=== PATIENT | female | born 1955 | race Asian ===

== ENCOUNTER → 2017-11-12 09:27 | Outpatient (CLI) | payer OTHER, MEDICAID, SELFPAY ==
--- NOTE | 2017-11-12 | DI.MRI.S_ITS ---
PROCEDURE: MR ABDOMEN WO/W CON INDICATIONS: 62 year-old female with hepatitis B. TECHNIQUE: Coronal HASTE, axial 2D FLASH in- and [id number]; axial breath-hold T2 FSE. Dynamic axial VIBE during the administration of contrast; post-contrast coronal VIBE or 2D FLASH with fat saturation from the hepatic dome to the iliac crests. Optional diffusion weighted imaging and ADC may be performed. COMPARISON: [facility], CT, PE STUDY (CTA CHEST), 07/07/2016, 10:59. Outside Film, CT, CT ABDOMEN PELVIS WITH CONTRAST, 10/08/2017, 9:50. FINDINGS: Image quality: Excellent. Lung bases: Basal loculated right pleural effusion is again noted, with numerous internal septations, some of which demonstrate enhancement anteriorly. Anterolateral right chest wall pigtail drainage catheter is now present. Moderate cardiomegaly is unchanged. Solid organs: Liver is normal in size, with multiple small and punctate hepatic cysts again noted. Gallbladder demonstrates no gallstones or biliary sludge. Biliary system is non dilated. Pancreas is normal in morphology. Spleen is normal in size and enhancement. No adrenal nodules. Both kidneys demonstrate normal size and enhancement, without hydronephrosis. Nodes and vessels: No retroperitoneal or mesenteric adenopathy by size criteria. Aorta and inferior vena cava are normal in size. Bowel and peritoneum: Unenhanced bowel loops are normal in caliber. No free fluid. Bones and soft tissues: No ventral hernias. Bone marrow is normal in overall signal. IMPRESSION: 1. No suspicious hypervascular hepatic mass lesions to suggest hepatocellular carcinoma in the setting of hepatitis B. 2. Numerous punctate and small nonenhancing hepatic cysts again noted. 3. Basal loculated right pleural effusion may reflect empyema, and demonstrates numerous nonenhancing and anterior enhancing internal septations. As such, percutaneous drainage may not be effective for management. Dictated by: Ishaan Gregory M.D. on 11/12/2017 at 11:45 Approved by: Ishaan Gregory M.D. on 11/12/2017 at 11:59
== END ==
PROVIDERS: PCP Internal Medicine; Visit Provider Internal Medicine Gastroenterology
DX: B19.10 Unspecified viral hepatitis B without hepatic coma (principal); K76.89 Other specified diseases of liver; J90 Pleural effusion, not elsewhere classified
CPT/HCPCS: 74183

== ENCOUNTER 2018-02-26 12:26 | Inpatient (IN) | payer MEDICARE, MEDICAID, SELFPAY ==
[2018-02-26] VITALS (26 sets, daily range): BP systolic 69–119; BP diastolic 35–83; PULSE 101–160; RESP 14–26; TEMP 36.3–37.2; O2SAT 97–100; BMI 15.3
--- NOTE | 2018-02-26 12:56 | DI.RAD.S_ITS ---
PROCEDURE: XR CHEST 1V INDICATIONS: weakness TECHNIQUE: One view of the chest was acquired. COMPARISON: [facility], CR, XR CHEST 1 VIEW, 11/26/2017, 9:02. [facility], CR, CHEST 1 VIEW, 08/10/2016, 10:40. FINDINGS: Surgical changes and devices: None. Lungs and pleura: Complex-appearing consolidation and gas is present at the right lung base. There is a small moderate right pleural effusion. Mediastinum: Mediastinal contours appear normal. Heart size is normal. Bones and chest wall: No suspicious bony lesions. Overlying soft tissues appear unremarkable. IMPRESSION: 1. Findings suggestive of complex right lower lobe pneumonia. Cavitary lesions cannot be excluded. There is a moderate-sized effusion as well. Dictated by: Araceli Arvizu M.D. on 02/26/2018 at 14:33 Approved by: Araceli Arvizu M.D. on 02/26/2018 at 14:34
[2018-02-26] MEDS: SODIUM CHLORIDE 0.9% 1,000 ML 150 ML IV ×2 (13:02→19:53)
[2018-02-26] MEDS: METOPROLOL TARTRATE 5 MG/5 ML INJ IV (13:02)
[2018-02-26 13:03] LABS: Add Manual Diff / Slide Review NO; Basophils Percent Auto 0.9 % (0-2); Eosinophils Percent Auto 0.1 % (2-4); Hematocrit 28.1 % (36-46); Hemoglobin 8.8 g/dL (12.0-16.0); Mean Corpuscular HGB Conc 31.4 % (30-36); Mean Corpuscular Hemoglobin 24.6 PG (26-34); Mean Corpuscular Volume 78.3 fL (80-100); Monocytes Percent Auto 8.2 % (3-14); Neutrophils Absolute Auto 4200 /uL (3000-5900); Neutrophils Percent Auto 82.8 % (50-75); Platelet Count 394 X10^3/uL (150-400); Red Blood Cell Count 3.59 X10^6/uL (4.0-5.2); Red Cell Distribution Width 20.5 % (11.6-14.8)
[2018-02-26 13:11] LABS: PTT Partial Thromboplastin Tim 47 SECONDS (26.4-36.2)
[2018-02-26 13:15] LABS: Alanine Aminotransferase 37 IU/L (9-52); Albumin 3.4 g/dL (3.5-5.0); Albumin Globulin Ratio 0.7 (1.0-2.8); Alkaline Phosphatase 112 U/L (38-126); Aspartate Aminotransferase 99 IU/L (14-36); BUN Creatinine Ratio 15.7 (6-22); Bilirubin Total 1.6 mg/dL (0.2-1.3); Blood Urea Nitrogen 11 mg/dL (7-17); Calcium 8.5 mg/dL (8.4-10.2); Carbon Dioxide 24 mmol/L (22-32); Chloride 102 mmol/L (98-107); Creatine Kinase 60 U/L (30-135); Estimated Glomerular Filt Rate > 60.0 mL/min (>60); Globulin 5.2 g/dL (1.7-4.1); Glucose 182 mg/dL (80-110); HEMOLYSIS 41 (0-50); Lipase 68 U/L (23-300); Potassium 4.2 mmol/L (3.4-5.1); Sodium 138 mmol/L (137-145); Total Protein 8.6 g/dL (6.3-8.2)
[2018-02-26 13:20] LABS: Prothrombin Time 58.5 SECONDS (10.1-12.7)
[2018-02-26 13:22] LABS: INR 5.2 (0.9-1.3)
[2018-02-26 13:27] LABS: Troponin I < 0.012 ng/mL (0.01-0.034)
[2018-02-26 13:31] LABS: Anisocytosis 2+; Poikilocytosis 1+; Polychromasia 1+
--- NOTE | 2018-02-26 13:44 | ED.SOB ---
HPI - SOB/Dyspnea General Chief Complaint: Shortness of Breath/Dyspnea Stated Complaint: SHORT OF BREATH WHEN SITTING Time Seen by Provider: 02/26/18 12:51 Source: patient and family Mode of arrival: ambulatory Limitations: no limitations History of Present Illness 62-year-old female presents with a chief complaint of profound shortness of breath for the past few days. She has a history of atrial fibrillation and takes Coumadin. She does not report any palpitations or chest pain but is quite short of breath with any exertion or lying flat. She has known anemia which has been worked up for about a year without any obvious source. Patient denies missing any of her medications. Her primary care provider is Hillary Fowler. She was last admitted here in 2017 and had a baseline hemoglobin of about 12 and was admitted for persistent, rapid atrial fibrillation with RVR. She developed CHF during her admission. Related Data Home Medications Medication Instructions Recorded Confirmed simvastatin 10 mg PO HS #0 07/06/16 02/26/18 tenofovir disoproxil fumarate 300 mg PO QDAY #0 07/06/16 02/26/18 [Viread] Calcium 500 + D 1 tab PO DAILY 02/26/18 02/26/18 ethambutol 800 mg PO DAILY 02/26/18 02/26/18 isoniazid 300 mg PO DAILY 02/26/18 02/26/18 metoprolol succinate 1 tab PO DAILY 02/26/18 02/26/18 pyrazinamide 2 tab PO DAILY 02/26/18 02/26/18 pyridoxine (vitamin B6) [Vitamin 1 tab PO DAILY 02/26/18 02/26/18 B-6] sildenafil (antihypertensive) 10 mg PO BID 02/26/18 02/26/18 warfarin 1 - 2 tab PO QPM 02/26/18 02/26/18 Allergies Allergy/AdvReac Type Severity Reaction Status Date / Time No Known Drug Allergies Allergy Verified 02/26/18 12:43 Review of Systems Review of Systems All systems reviewed & are unremarkable except as noted in HPI and below Constitutional Denies chills, Denies fever(s), Denies lethargy and Reports weakness Eyes Denies change in vision, Denies eye discharge, Denies irritation and Denies loss of vision ENT Ears, Nose, Mouth, and Throat: Denies change in voice, Denies neck pain and Denies sore throat Cardiovascular Denies chest pain, Denies irregular heart rhythm, Denies lightheadedness, Denies palpitations, Denies dyspnea, Denies dyspnea on exertion and Denies orthopnea Respiratory Denies cough, Denies dyspnea, Denies dyspnea on exertion and Denies wheezing Gastrointestinal Gastrointestinal: Denies abdominal pain, Denies change in bowel habits, Denies diarrhea, Denies nausea and Denies vomiting Genitourinary Denies hematuria, Denies flank pain, Denies urinary incontinence and Denies urinary urgency Musculoskeletal Denies neck pain Integumentary/Breasts Denies pruritus, Denies erythema, Denies rash and Denies wounds Neurologic Denies confusion, Denies loss of vision and Reports weakness Psychiatric Denies anxiety, Denies confusion, Denies depression, Denies homicidal ideation and Denies suicidal ideation Endocrine Denies palpitations Hematologic/Lymphatic Denies easy bruising Allergic/Immunologic Denies wheezing PFSH Medical History Anemia (Acute) Atrial fibrillation (Acute) CHF (congestive heart failure) (Acute) Chronic hepatitis B (Acute) Social History Smoking Status: Never smoker Exam Narrative Exam Narrative: 62F appears unwell and in mild distress Initial Vital Signs Initial Vital Signs: Vital Signs Temperature 97.6 F 02/26/18 12:38 Pulse Rate 152 H 02/26/18 12:38 Respiratory Rate 14 02/26/18 12:38 Blood Pressure 83/59 L 02/26/18 12:38 Pulse Oximetry 98 02/26/18 12:38 Const General: cooperative, well developed and in distress Nutritional Appearance: well nourished Orientation: alert, awake, oriented x3 and not confused [facility] Head: normocephalic and atraumatic Ears: external ears normal and TM's normal bilaterally Nose: external nose normal and No nasal discharge Face and sinus: sinuses nontender, face symmetric, no sinus tenderness and No dry mucous membranes Mouth: oral mucosae normal and moist mucous membranes Teeth and gingiva: dentition normal Throat: tonsils normal and uvula midline Eyes General: appearance normal, both eyes and all related structures Eyelids: eyelids normal Conjunctivae: conjunctivae normal Sclera: sclerae normal Pupils: PERRL EOM: EOM intact bilaterally Neck Neck: normal visual inspection, trachea midline, No lymphadenopathy, No midline deformity and No JVD Lymphatic: No lymphedema Chest Chest: normal inspection of the chest Resp Effort & Inspection: normal respiratory effort, able to speak in complete sentences, no respiratory distress and no use of accessory muscles Auscultation: crackles on the right at the base, no rales, no rhonchi and no wheezes Cardio Rate: tachycardic Rhythm: abnormal rhythm Heart Sounds: no click, no gallops, no murmurs and no rubs Pulses: normal peripheral pulses GI Inspection: non-distended Palpation: soft, no hepatosplenomegaly, No guarding, No pulsatile mass and No tender Auscultation: normal bowel sounds Rectal Exam: visual inspection normal and heme negative stool Back/Spine/Pelvis Back: No CVA tenderness Cervical Spine: cervical ROM normal and No pain with cervical ROM Thoracic/Lumbar Spine: thoracic and lumbar spine normal to inspection Skin General: no rashes or lesions noted, No jaundice and No petechiae Course Orders Ordered: ED Orders 02/26/18 12:56 XR chest 1V Stat Complete Blood Count AUTO DIFF Stat Comprehensive Metabolic Panel Stat Lipase Stat Partial Thromboplastin Time Stat Prothrombin Time INR Stat Troponin & CK Cardiac Panel Stat EKG-12 Lead Stat 02/26/18 14:55 Type and Screen Stat 02/26/18 15:18 Blood Culture Stat 02/26/18 15:24 Lactate (Lactic Acid) Stat Procalcitonin Stat Sodium Chloride (Normal Saline 0.9%) 1,000 mls @ 150 mls/hr IV CONT TRUMAN Last Admin: 02/26/18 13:02 Dose: 150 mls/hr Diltiazem HCl 125 mg/ Dextrose 125 mls @ 5 mls/hr IV TITRATE TRUMAN; Protocol Last Admin: 02/26/18 14:59 Dose: 5 mg/hr, 5 mls/hr Discontinued Medications Diltiazem HCl (Cardizem) 10 mg IV NOW ONE Stop: 02/26/18 14:01 Last Admin: 02/26/18 14:01 Dose: 10 mg Ceftriaxone Sodium/Dextrose (Rocephin) 1 gm in 50 mls @ 100 mls/hr IV NOW ONE Stop: 02/26/18 15:31 Last Admin: 02/26/18 15:27 Dose: 100 mls/hr Metoprolol Tartrate (Lopressor) 5 mg IV NOW ONE Stop: 02/26/18 12:57 Last Admin: 02/26/18 13:02 Dose: 5 mg Consultations Consultation #1: Dr. Clayton happy to accept Vital Signs - 8 hr 02/26/18 12:38 02/26/18 13:00 02/26/18 13:20 Temperature 97.6 F Pulse Rate 152 H 158 H 150 H Respiratory Rate 14 20 18 Blood Pressure 83/59 L Blood Pressure [Right Arm] 119/83 76/62 L Pulse Oximetry 98 99 02/26/18 13:30 02/26/18 13:40 02/26/18 14:01 Temperature Pulse Rate 142 H 142 H 145 H Respiratory Rate 18 18 Blood Pressure 71/60 L Blood Pressure [Right Arm] 71/60 L 70/60 L Pulse Oximetry 98 98 02/26/18 14:03 02/26/18 14:07 02/26/18 14:09 Temperature Pulse Rate 160 H 112 H 121 H Respiratory Rate 20 22 Blood Pressure Blood Pressure [Right Arm] 72/61 L 69/55 L 70/59 L Pulse Oximetry 97 99 02/26/18 14:23 02/26/18 14:41 02/26/18 14:58 Temperature Pulse Rate 121 H 138 H 137 H Respiratory Rate 22 18 Blood Pressure Blood Pressure [Right Arm] 73/59 L 89/69 L 83/60 L Pulse Oximetry 97 02/26/18 14:59 02/26/18 15:01 02/26/18 15:08 Temperature Pulse Rate 128 H 131 H 130 H Respiratory Rate 26 H 14 Blood Pressure 83/60 L Blood Pressure [Right Arm] 80/66 L 77/62 L Pulse Oximetry 97 99 02/26/18 15:28 02/26/18 15:32 02/26/18 15:48 Temperature Pulse Rate 118 H 129 H 123 H Respiratory Rate 16 22 Blood Pressure Blood Pressure [Right Arm] 82/69 L 70/56 L 78/63 L Pulse Oximetry 98 99 MDM - SOB/Dyspnea Medical Records Attestation: I reviewed the patient's medical records. Lab Data Attestation: I reviewed the patient's lab results. Result diagrams: 02/26/18 12:56 02/26/18 12:56 Lab Results 02/26/18 02/26/18 02/26/18 Range/Units 12:56 12:56 12:56 WBC 5.0 (4.5-11.0) X10^3/uL RBC 3.59 L (4.0-5.2) X10^6/uL Hgb 8.8 L (12.0-16.0) g/dL Hct 28.1 L (36-46) % MCV 78.3 L (80-100) fL MCH 24.6 L (26-34) PG MCHC 31.4 (30-36) % RDW 20.5 H (11.6-14.8) % Plt Count 394 (150-400) X10^3/uL Neut % (Auto) 82.8 H (50-75) % Lymph % (Auto) 8.0 L (25-40) % [place] % (Auto) 8.2 (3-14) % Eos % (Auto) 0.1 L (2-4) % Baso % (Auto) 0.9 (0-2) % Neut # (Auto) 4200 (2847-1974) /uL RBC Morphology See below Polychromasia 1+ H Poikilocytosis 1+ H Anisocytosis 2+ H PT 58.5 H (10.1-12.7) SECONDS INR 5.2 H* (0.9-1.3) APTT 47 H (26.4-36.2) SECONDS Sodium 138 (137-145) mmol/L Potassium 4.2 (3.4-5.1) mmol/L Chloride 102 (98-107) mmol/L Carbon Dioxide 24 (22-32) mmol/L BUN 11 (7-17) mg/dL Creatinine 0.70 (0.52-1.04) mg/dL Estimated GFR > 60.0 (>60) mL/min BUN/Creatinine Ratio 15.7 (6-22) Glucose 182 H (80-110) mg/dL Lactate (0.7-2.1) mmol/L Calcium 8.5 (8.4-10.2) mg/dL Total Bilirubin 1.6 H (0.2-1.3) mg/dL AST 99 H (14-36) IU/L ALT 37 (9-52) IU/L Alkaline Phosphatase 112 (38-126) U/L Total Creatine Kinase 60 (30-135) U/L CK-MB (CK-2) TNP CK-MB (CK-2) Rel Index TNP Troponin I < 0.012 (0.01-0.034) ng/mL Total Protein 8.6 H (6.3-8.2) g/dL Albumin 3.4 L (3.5-5.0) g/dL Globulin 5.2 H (1.7-4.1) g/dL Albumin/Globulin Ratio 0.7 L (1.0-2.8) Lipase 68 (23-300) U/L Procalcitonin (<0.5) ng/mL Blood Type Antibody Screen 02/26/18 02/26/18 02/26/18 Range/Units 14:55 15:24 15:24 WBC (4.5-11.0) X10^3/uL RBC (4.0-5.2) X10^6/uL Hgb (12.0-16.0) g/dL Hct (36-46) % MCV (80-100) fL MCH (26-34) PG MCHC (30-36) % RDW (11.6-14.8) % Plt Count (150-400) X10^3/uL Neut % (Auto) (50-75) % Lymph % (Auto) (25-40) % [place] % (Auto) (3-14) % Eos % (Auto) (2-4) % Baso % (Auto) (0-2) % Neut # (Auto) (5892-4641) /uL RBC Morphology Polychromasia Poikilocytosis Anisocytosis PT (10.1-12.7) SECONDS INR (0.9-1.3) APTT (26.4-36.2) SECONDS Sodium (137-145) mmol/L Potassium (3.4-5.1) mmol/L Chloride (98-107) mmol/L Carbon Dioxide (22-32) mmol/L BUN (7-17) mg/dL Creatinine (0.52-1.04) mg/dL Estimated GFR (>60) mL/min BUN/Creatinine Ratio (6-22) Glucose (80-110) mg/dL Lactate 1.5 (0.7-2.1) mmol/L Calcium (8.4-10.2) mg/dL Total Bilirubin (0.2-1.3) mg/dL AST (14-36) IU/L ALT (9-52) IU/L Alkaline Phosphatase (38-126) U/L Total Creatine Kinase (30-135) U/L CK-MB (CK-2) CK-MB (CK-2) Rel Index Troponin I (0.01-0.034) ng/mL Total Protein (6.3-8.2) g/dL Albumin (3.5-5.0) g/dL Globulin (1.7-4.1) g/dL Albumin/Globulin Ratio (1.0-2.8) Lipase (23-300) U/L Procalcitonin 0.32 (<0.5) ng/mL Blood Type O Positive Antibody Screen Negative MDM Narrative Medical decision making narrative: patient not a great candidate for conscious sedation and cardioversion given her chronic illness and hypotension. She had a nice response to Cardizem push and will therefor begin drip and place in ICU. Discharge Plan Departure Patient Disposition: Admitted As Inpatient Clinical Impression: Atrial fibrillation with rapid ventricular response, Anemia, Supratherapeutic INR Admit Date/Time: 02/26/18 15:50 Admit Provider: [place]
[2018-02-26] MEDS: dilTIAZem 5 MG/ML SDV 10 MG IV (14:01)
[2018-02-26] MEDS: dilTIAZem 125 MG in DEXTROSE 5 % IN WATER 100 ML IV (14:59)
[2018-02-26] MEDS: CEFTRIAXONE 1 GM/50 ML FROZ.PIGGY IV (15:27)
[2018-02-26 15:42] LABS: Lactate (Lactic Acid) 1.5 mmol/L (0.7-2.1)
[2018-02-26 16:09] LABS: Procalcitonin 0.32 ng/mL (<0.5)
--- NOTE | 2018-02-26 18:11 | PM.HP.1 ---
History of Present Illness Date Patient Seen: 02/26/18 Time Patient Seen: 18:11 Chief complaint: SHORT OF BREATH WHEN SITTING Narrative: Chief complaint Shortness of breath with palpitations. History of present illness Patient is a 62 years of age female with known history of AFib on chronic Coumadin therapy. History of cardioversion last year 2016. No recent fevers nor chills no recent cough ER physician notes on chest x-ray right lower lobe infiltrate consistent with pneumonia. The shortness of breath and the palpitations noted earlier today. No associated chest pain. Patient History Medical History Anemia (Acute) Atrial fibrillation (Acute) CHF (congestive heart failure) (Acute) Chronic hepatitis B (Acute) Comment: Past medical history atrial fibrillation on chronic Coumadin therapy No history of diabetes no history of cancer no history of documented hypertension Family & Social History Safety & Behavioral: Feels Safe in Current Yes Environment Been Physically Hurt or No Threatened By a Person Tobacco & Substance use: Smoking Status Never smoker alcohol intake frequency 0-2 drinks per day Substance Use Type does not use Comment: Social history Patient lives along Nonsmoker Nonalcoholic Surgical history No major surgery Family history No cancer Meds Home Medications Medication Instructions Recorded Confirmed Type simvastatin 10 mg PO HS #0 07/06/16 02/26/18 History tenofovir disoproxil fumarate 300 mg PO QDAY #0 07/06/16 02/26/18 History [Viread] Calcium 500 + D 1 tab PO DAILY 02/26/18 02/26/18 History ethambutol 800 mg PO DAILY 02/26/18 02/26/18 History isoniazid 300 mg PO DAILY 02/26/18 02/26/18 History metoprolol succinate 1 tab PO DAILY 02/26/18 02/26/18 History pyrazinamide 2 tab PO DAILY 02/26/18 02/26/18 History pyridoxine (vitamin B6) [Vitamin 1 tab PO DAILY 02/26/18 02/26/18 History B-6] sildenafil (antihypertensive) 10 mg PO BID 02/26/18 02/26/18 History warfarin 1 - 2 tab PO QPM 02/26/18 02/26/18 History Allergies Allergy/AdvReac Type Severity Reaction Status Date / Time No Known Drug Allergies Allergy Verified 02/26/18 12:43 Review of Systems Review of Systems Ten point system review was negative apart from the symptoms as described which is the shortness of breath and palpitations Exam Vital Signs (past 8 hours): - 02/26/18 12:38 02/26/18 13:00 02/26/18 13:20 Temperature 97.6 F Pulse Rate 152 H 158 H 150 H Respiratory Rate 14 20 18 Blood Pressure 83/59 L Blood Pressure [Right Arm] 119/83 76/62 L Pulse Oximetry 98 99 02/26/18 13:30 02/26/18 13:40 02/26/18 14:01 Temperature Pulse Rate 142 H 142 H 145 H Respiratory Rate 18 18 Blood Pressure 71/60 L Blood Pressure [Right Arm] 71/60 L 70/60 L Pulse Oximetry 98 98 02/26/18 14:03 02/26/18 14:07 02/26/18 14:09 Temperature Pulse Rate 160 H 112 H 121 H Respiratory Rate 20 22 Blood Pressure Blood Pressure [Right Arm] 72/61 L 69/55 L 70/59 L Pulse Oximetry 97 99 02/26/18 14:23 02/26/18 14:41 02/26/18 14:58 Temperature Pulse Rate 121 H 138 H 137 H Respiratory Rate 22 18 Blood Pressure Blood Pressure [Right Arm] 73/59 L 89/69 L 83/60 L Pulse Oximetry 97 02/26/18 14:59 02/26/18 15:01 02/26/18 15:08 Temperature Pulse Rate 128 H 131 H 130 H Respiratory Rate 26 H 14 Blood Pressure 83/60 L Blood Pressure [Right Arm] 80/66 L 77/62 L Pulse Oximetry 97 99 02/26/18 15:28 02/26/18 15:32 02/26/18 15:48 Temperature Pulse Rate 118 H 129 H 123 H Respiratory Rate 16 22 Blood Pressure Blood Pressure [Right Arm] 82/69 L 70/56 L 78/63 L Pulse Oximetry 98 99 02/26/18 16:31 02/26/18 17:16 02/26/18 17:40 Temperature 99.0 F 98.3 F Pulse Rate 108 H 104 H 112 H Respiratory Rate 18 18 18 Blood Pressure 99/67 Blood Pressure [Right Arm] 82/59 L 70/52 L Pulse Oximetry 98 98 100 Oxygen Delivery Method Room Air Narrative Exam Narrative: General appearance awake and alert no apparent distress at rest Psychiatric well oriented to time place and person mood is pleasant affect is appropriate Eyes pupils are equal round and reactive to light Skin no rashes or lesions the new turgor normal nonjaundiced Ears nose and throat hearing grossly intact no septum to midline no bleeding no oropharyngeal lesions noted Respiratory fairly clear to auscultation no wheezes no crackles Cardiovascular regular rate rhythm no murmurs +3 pulses to extremities GI is fairly benign soft nontender positive bowel sounds no bruits Neurologic no focal neurologic changes cranial nerves 2-12 grossly intact Musculoskeletal strength 5/5 no clubbing noted range of motion appears normal Objective Labs Result Diagrams: 02/26/18 12:56 02/26/18 12:56 Labs: Laboratory Results - last 24 hr 02/26/18 02/26/18 02/26/18 12:56 12:56 12:56 WBC 5.0 RBC 3.59 L Hgb 8.8 L Hct 28.1 L MCV 78.3 L MCH 24.6 L MCHC 31.4 RDW 20.5 H Plt Count 394 Neut % (Auto) 82.8 H Lymph % (Auto) 8.0 L [place] % (Auto) 8.2 Eos % (Auto) 0.1 L Baso % (Auto) 0.9 Neut # (Auto) 4200 RBC Morphology See below Polychromasia 1+ H Poikilocytosis 1+ H Anisocytosis 2+ H PT 58.5 H INR 5.2 H* APTT 47 H Sodium 138 Potassium 4.2 Chloride 102 Carbon Dioxide 24 BUN 11 Creatinine 0.70 Estimated GFR > 60.0 BUN/Creatinine Ratio 15.7 Glucose 182 H Lactate Calcium 8.5 Total Bilirubin 1.6 H AST 99 H ALT 37 Alkaline Phosphatase 112 Total Creatine Kinase 60 CK-MB (CK-2) TNP CK-MB (CK-2) Rel Index TNP Troponin I < 0.012 Total Protein 8.6 H Albumin 3.4 L Globulin 5.2 H Albumin/Globulin Ratio 0.7 L Lipase 68 Procalcitonin Blood Type Antibody Screen 02/26/18 02/26/18 02/26/18 14:55 15:24 15:24 WBC RBC Hgb Hct MCV MCH MCHC RDW Plt Count Neut % (Auto) Lymph % (Auto) [place] % (Auto) Eos % (Auto) Baso % (Auto) Neut # (Auto) RBC Morphology Polychromasia Poikilocytosis Anisocytosis PT INR APTT Sodium Potassium Chloride Carbon Dioxide BUN Creatinine Estimated GFR BUN/Creatinine Ratio Glucose Lactate 1.5 Calcium Total Bilirubin AST ALT Alkaline Phosphatase Total Creatine Kinase CK-MB (CK-2) CK-MB (CK-2) Rel Index Troponin I Total Protein Albumin Globulin Albumin/Globulin Ratio Lipase Procalcitonin 0.32 Blood Type O Positive Antibody Screen Negative Assessment & Plan Plan: Assessment/Plan Narrative: Rapid atrial fibrillation Patient started on diltiazem infusion and admitted to ICU Telemetry provided Supra therapeutic INR Hold the Coumadin Daily INR Right lower lobe pneumonia Is noted on chest x-ray Procalcitonin is 0.32 repeat procalcitonin in a.m. as ordered Xithromax 500 mg IV daily Rocephin 1 g daily IV Follow-up blood cultures if negative consider IV iron replacement if patient is found to have iron deficiency anemia Microcytic anemia Iron studies pending. Retic count pending Time Spent With Patient Time with patient: Greater than 35 minutes (65 min)
[2018-02-26 18:39] LABS: Reticulocyte Count, Percent 2.4 % (1.06-2.63)
[2018-02-26] MEDS: AZITHROMYCIN 500 MG in DEXTROSE 5% IN WATER 250 ML IV (18:40)
[2018-02-26 19:17] LABS: HEMOLYSIS < 15 (0-50); Iron 26 ug/dL (37-170)
[2018-02-26 19:28] LABS: Percent Iron Saturation 9 % (15-50); Total Iron Binding Capacity 276 ug/dL (265-497); Transferrin 207 mg/dL (206-381)
[2018-02-26] MEDS: SIMVASTATIN 10 MG TABLET PO (20:26)
--- NOTE | 2018-02-26 21:57 | PC.NURSE ---
Diltiazem drip stopped, HR 90s. BP hypotensive since arrival to ED, currently 79/35, MD aware. Pt A/Ox4. Able to stand and transfer to C with slight dizziness. Tolerating PO intake.
[2018-02-27] VITALS (19 sets, daily range): BP systolic 73–101; BP diastolic 32–65; PULSE 79–134; RESP 18–35; TEMP 36.1–37.3; O2SAT 96–100
--- NOTE | 2018-02-27 | DI.CT.S_ITS ---
PROCEDURE: CT CHEST ABDOMEN W CON INDICATIONS: suspicious complex infiltrate in RLL. TECHNIQUE: After the administration of oral contrast and intravenous contrast, 5 mm thick sections acquired from the lung apices to the iliac crests. 5 mm coronal and sagittal reformats were performed, with additional 7 mm coronal MIP reformats through the lungs. For radiation dose reduction, the following was used: automated exposure control, adjustment of mA and/or kV according to patient size. COMPARISON: [facility], CT, CT BIOPSY LUNG/MEDIASTINUM, 11/09/2017, 8:45. Merged With [facility], CR, XR CHEST 1V, 02/26/2018, 13:05. Outside Film, CT, CT ABDOMEN PELVIS WITH CONTRAST, 10/08/2017, 9:50. FINDINGS: Image quality: Excellent. CHEST: Lungs and pleura: Consolidation is noted in the right lung base. There is a large loculated right-sided pleural fluid collection. There is marked thickening and irregularity of the pleura in the right lung base which has progressed compared to prior CT scan obtained 10/08/[address] scan biopsy 11/09/2017. No pneumothorax. Central and peripheral airways are patent and normal in caliber. Mediastinum: Heart size is enlarged. No pericardial effusion. No mediastinal or hilar adenopathy by size criteria. Thoracic aorta and central pulmonary arteries are normal in size. Esophagus is normal in caliber. No hiatal hernia. Chest wall: No axillary or supraclavicular adenopathy by size criteria. Thyroid gland contains a subcentimeter small hypoattenuating nodules. The 1.1 cm enhancing nodule is noted posterior to the inferior margin of the left thyroid which may represent parathyroid adenoma.. ABDOMEN: Solid organs: Liver is normal in size and enhancement. Multiple hepatic cysts not significantly changed compared to 10/08/17. Gallbladder is partially contracted. Small amount of pericholecystic fluid is noted.. Biliary system is non dilated. Pancreas enhances normally. Spleen is normal in size and enhancement. No adrenal nodules. Kidneys are normal in size and enhancement, without hydronephrosis. Peritoneum and bowel: Bowel loops demonstrate normal wall thickness and caliber. No free fluid or air. Nodes and vessels: No retroperitoneal or mesenteric adenopathy by size criteria. Aorta and inferior vena cava are normal in caliber. Bones: No suspicious bony lesions. No vertebral body compression fractures. Miscellaneous: No ventral hernias. IMPRESSION: 1. Large, loculated right pleural fluid collection which is increased in size compared to prior examinations. There is marked pleural irregularity and thickening associated with the right-sided pleural fluid collection which could represent neoplastic or chronic empyema. Recommend correlation with prior biopsy results. 2. Right lower lobe consolidation concerning for aspiration versus pneumonia. 3. Small amount of pericholecystic fluid. There is clinical concern for allergies, abdominal ultrasound should be obtained for definitive characterization. 4. Cardiomegaly. Dictated by: Anne-Marie Miller MD, PhD on 02/27/2018 at 9:08 Approved by: Anne-Marie Miller MD, PhD on 02/27/2018 at 9:25
[2018-02-27] MEDS: SODIUM CHLORIDE 0.9% 1,000 ML 150 ML IV ×3 (02:47→17:44)
[2018-02-27 05:04] LABS: Add Manual Diff / Slide Review NO; Basophils Percent Auto 1.3 % (0-2); Eosinophils Percent Auto 0.9 % (2-4); Hematocrit 23.8 % (36-46); Hemoglobin 7.5 g/dL (12.0-16.0); Lymphocytes Percent Auto 13.4 % (25-40); Mean Corpuscular HGB Conc 31.5 % (30-36); Mean Corpuscular Hemoglobin 24.5 PG (26-34); Mean Corpuscular Volume 77.8 fL (80-100); Monocytes Percent Auto 10.9 % (3-14); Neutrophils Absolute Auto 3000 /uL (3000-5900); Neutrophils Percent Auto 73.5 % (50-75); Platelet Count 322 X10^3/uL (150-400); Red Blood Cell Count 3.05 X10^6/uL (4.0-5.2); Red Cell Distribution Width 20.1 % (11.6-14.8)
[2018-02-27 05:11] LABS: Alanine Aminotransferase 32 IU/L (9-52); Albumin 2.7 g/dL (3.5-5.0); Albumin Globulin Ratio 0.7 (1.0-2.8); Alkaline Phosphatase 94 U/L (38-126); Aspartate Aminotransferase 65 IU/L (14-36); Bilirubin Total 0.9 mg/dL (0.2-1.3); Blood Urea Nitrogen 9 mg/dL (7-17); Calcium 7.8 mg/dL (8.4-10.2); Carbon Dioxide 24 mmol/L (22-32); Chloride 107 mmol/L (98-107); Estimated Glomerular Filt Rate > 60.0 mL/min (>60); Glucose 101 mg/dL (80-110); HEMOLYSIS < 15 (0-50); Potassium 3.7 mmol/L (3.4-5.1); Sodium 139 mmol/L (137-145); Total Protein 6.7 g/dL (6.3-8.2)
[2018-02-27 05:14] LABS: INR 5.2 (0.9-1.3)
[2018-02-27 05:35] LABS: C-Reactive Protein Quant 3.4 mg/dL (<1.0)
--- NOTE | 2018-02-27 06:28 | PC.NURSE ---
Patient has been awake most of the night, mild anxiety r/t hospitalization and tachycardia, denies chest pain, or dyspnea, slightly dizzy and short of breath while transferring to BSC, SpO2 >96% on RA, breath sounds very diminished RLL. Remains in A-fib RVR, sustaining 100-120 at midnight, diltiazem gtt restarted at 2.5mg/hr, still hypotensive 80s/40s MAP >60, see vital trends. Increased diltiazem gtt to 5mg/hr at 0500 after patient up to BSC for HR sustaining >120. Dr Clayton called to inquire about patient's status, informed him of the above, he ordered CT of abd/pelvis w/ contrast.
[2018-02-27] MEDS: SILDENAFIL 20 MG TABLET 10 MG PO (08:13)
[2018-02-27] MEDS: ETHAMBUTOL 400 MG TABLET 800 MG PO (08:13)
[2018-02-27] MEDS: PYRIDOXINE (VITAMIN B6) 50 MG TABLET PO (08:13)
[2018-02-27] MEDS: ISONIAZID 300 MG TABLET PO (08:13)
[2018-02-27] MEDS: METOPROLOL ER 25 MG TABLET PO (08:14)
--- NOTE | 2018-02-27 10:29 | CM.DANOTE ---
DCP: Case received, EMR reviewed and met with patient. Introduced self and role. DCP template completed with information currently available. Patient is a 62 year old female who admitted yesterday afternoon to the care of the hospitalist team. PCP: Dr. Dunham. Payer: confirmed: Medicare/Medicaid. Patient was admitted to hospital with symptoms of shortness of breath. Was noted to be in A-Fib, had recenent cardioversion, for she has history of this. Patient alert and oriented, is on Diltiazem drip in ICU at this time, and will be having a CT scan. Patient lives alone, but has support of friends, and a neice as well. P: DCP to continue to assess. Patient's goal is to go home, but will depend on progress in hospital with current condition. Virgie Marin RN/News Video Editor
[2018-02-27] MEDS: DOCUSATE 100 MG CAPSULE PO ×2 (12:46→20:47)
--- NOTE | 2018-02-27 13:58 | PC.NURSE ---
pt taking many medications for TB of which she has supplied most of these and taken according to md order- given po dose of metoprolol this am in attempt to bring down hr as she remains on dilt gtt-this and her sildenafil both given and she remains hypotensive but continues to deny any pain - occassionally tachypneic which is concerning to pt. bsc intermittently - no MD rounds as of yet this shift
[2018-02-27] MEDS: dilTIAZem 125 MG in DEXTROSE 5 % IN WATER 100 ML 10 ML IV (14:27)
[2018-02-27] MEDS: CEFTRIAXONE 1 GM/50 ML FROZ.PIGGY IV (14:36)
--- NOTE | 2018-02-27 15:37 | PM.PN.1 ---
Subjective Date Patient Seen: 02/27/18 Time Patient Seen: 10:43 Interval history: History of present illness Follow-up on patient with rapid AFib along with his right lower lobe complex finding on chest x-ray Note follow-up CT of the abdomen pelvis today notes suspicious lesion for malignancy Patient had a biopsy of this right lower lobe region in October of 2017 at [facility] We are requesting a copy of the path report from this biopsy Review of systems No chest pain no shortness of breath no nausea at this time Exam Vital Signs (past 8 hours): - 02/27/18 08:14 02/27/18 09:40 02/27/18 10:20 Temperature 97.3 F L Pulse Rate 128 H 134 H 89 Respiratory Rate 25 H 21 Blood Pressure 92/61 92/53 L 73/32 L Pulse Oximetry 98 96 02/27/18 13:14 Temperature 99.1 F Pulse Rate 79 Respiratory Rate 33 H Blood Pressure 84/46 L Pulse Oximetry 97 Oxygen Delivery Method Room Air Oxygen Flow Rate 0 Narrative Exam Narrative: General appearance patient is awake and alert no apparent distress Psychiatric well oriented to time place person mood is pleasant patient is cooperative affect appropriate Respiratory with fair breath sounds no wheezes no crackles Cardiovascular irregular regular rhythm consistent with the AFib rate controlled at 90 per minute while on diltiazem IV infusion at 10 mg an hour GI is benign soft nontender positive bowel sounds Neurologic no focal neurologic changes cranial nerves 2-12 grossly intact Objective Labs Result Diagrams: 02/27/18 04:45 02/27/18 04:45 Labs: Laboratory Results - last 24 hr 02/26/18 02/26/18 02/26/18 14:55 15:24 15:24 WBC RBC Hgb Hct MCV MCH MCHC RDW Plt Count Neut % (Auto) Lymph % (Auto) Sharp % (Auto) Eos % (Auto) Baso % (Auto) Neut # (Auto) Percent Retic PT INR Sodium Potassium Chloride Carbon Dioxide BUN Creatinine Estimated GFR BUN/Creatinine Ratio Glucose Lactate 1.5 Calcium Iron TIBC % Saturation Transferrin Ferritin Total Bilirubin AST ALT Alkaline Phosphatase C-Reactive Protein Total Protein Albumin Globulin Albumin/Globulin Ratio Procalcitonin 0.32 Blood Type O Positive Antibody Screen Negative 02/26/18 02/26/18 02/26/18 18:29 18:29 18:29 WBC RBC Hgb Hct MCV MCH MCHC RDW Plt Count Neut % (Auto) Lymph % (Auto) Sharp % (Auto) Eos % (Auto) Baso % (Auto) Neut # (Auto) Percent Retic 2.4 PT INR Sodium Potassium Chloride Carbon Dioxide BUN Creatinine Estimated GFR BUN/Creatinine Ratio Glucose Lactate Calcium Iron 26 L TIBC 276 % Saturation 9 L Transferrin 207 Ferritin 171.0 Total Bilirubin AST ALT Alkaline Phosphatase C-Reactive Protein Total Protein Albumin Globulin Albumin/Globulin Ratio Procalcitonin Blood Type Antibody Screen 02/27/18 02/27/18 02/27/18 04:45 04:45 04:45 WBC 4.0 L RBC 3.05 L Hgb 7.5 L Hct 23.8 L MCV 77.8 L MCH 24.5 L MCHC 31.5 RDW 20.1 H Plt Count 322 Neut % (Auto) 73.5 Lymph % (Auto) 13.4 L Sharp % (Auto) 10.9 Eos % (Auto) 0.9 L Baso % (Auto) 1.3 Neut # (Auto) 3000 Percent Retic PT INR Sodium 139 Potassium 3.7 Chloride 107 Carbon Dioxide 24 BUN 9 Creatinine 0.50 L Estimated GFR > 60.0 BUN/Creatinine Ratio 18.0 Glucose 101 Lactate Calcium 7.8 L Iron TIBC % Saturation Transferrin Ferritin Total Bilirubin 0.9 AST 65 H ALT 32 Alkaline Phosphatase 94 C-Reactive Protein 3.4 H Total Protein 6.7 Albumin 2.7 L Globulin 4.0 Albumin/Globulin Ratio 0.7 L Procalcitonin Blood Type Antibody Screen 02/27/18 04:45 WBC RBC Hgb Hct MCV MCH MCHC RDW Plt Count Neut % (Auto) Lymph % (Auto) Sharp % (Auto) Eos % (Auto) Baso % (Auto) Neut # (Auto) Percent Retic PT 59.0 H INR 5.2 H* Sodium Potassium Chloride Carbon Dioxide BUN Creatinine Estimated GFR BUN/Creatinine Ratio Glucose Lactate Calcium Iron TIBC % Saturation Transferrin Ferritin Total Bilirubin AST ALT Alkaline Phosphatase C-Reactive Protein Total Protein Albumin Globulin Albumin/Globulin Ratio Procalcitonin Blood Type Antibody Screen Assessment & Plan Plan: Assessment/Plan Narrative: Rapid atrial fibrillation Patient started on diltiazem infusion and admitted to ICU and continues on the IV diltiazem today at 10 mg an hour Telemetry provided Supra therapeutic INR of 5.2 Continue holding the Coumadin today's INR is 5.2, same as on admission Right lower lobe pneumonia Is noted on chest x-ray Procalcitonin is 0.32 on admission repeat procalcitonin in a.m. as ordered Zithromax 500 mg IV daily Rocephin 1 g daily IV Blood cultures pending Requesting Path report from a biopsy of the right lower lobe in October at [facility] Note patient on antituberculous medications prior to admission Microcytic anemia Studies suggest anemia of chronic inflammation instead of iron deficiency anemia Need to treat the underlying cause a tomlin for the inflammation which appears to be related to this mischief in the right lower lung field Time Spent With Patient Time with patient: Greater than 35 minutes (35 min) Quality VTE Deep Vein Thrombosis/Pulmonary Embolism Present on Admission: No
[2018-02-27] MEDS: AZITHROMYCIN 500 MG in DEXTROSE 5% IN WATER 250 ML IV (17:42)
[2018-02-28] VITALS (15 sets, daily range): BP systolic 86–100; BP diastolic 44–63; PULSE 71–126; RESP 17–35; TEMP 36.6–37.3; O2SAT 93–97
[2018-02-28] MEDS: SODIUM CHLORIDE 0.9% 1,000 ML 150 ML IV (01:18)
[2018-02-28 05:13] LABS: Add Manual Diff / Slide Review NO; Basophils Percent Auto 0.8 % (0-2); Eosinophils Percent Auto 0.6 % (2-4); Hematocrit 25.9 % (36-46); Hemoglobin 8.1 g/dL (12.0-16.0); Lymphocytes Percent Auto 17.6 % (25-40); Mean Corpuscular HGB Conc 31.2 % (30-36); Mean Corpuscular Hemoglobin 24.6 PG (26-34); Mean Corpuscular Volume 79.1 fL (80-100); Monocytes Percent Auto 13.3 % (3-14); Neutrophils Absolute Auto 2500 /uL (3000-5900); Neutrophils Percent Auto 67.7 % (50-75); Platelet Count 299 X10^3/uL (150-400); Red Blood Cell Count 3.28 X10^6/uL (4.0-5.2); Red Cell Distribution Width 20.2 % (11.6-14.8); White Blood Cell Count 3.7 X10^3/uL (4.5-11.0)
[2018-02-28 05:16] LABS: INR 3.9 (0.9-1.3); Prothrombin Time 43.2 SECONDS (10.1-12.7)
[2018-02-28 05:23] LABS: Alanine Aminotransferase 37 IU/L (9-52); Albumin 2.7 g/dL (3.5-5.0); Albumin Globulin Ratio 0.6 (1.0-2.8); Alkaline Phosphatase 149 U/L (38-126); Aspartate Aminotransferase 66 IU/L (14-36); Bilirubin Total 1.2 mg/dL (0.2-1.3); Blood Urea Nitrogen 5 mg/dL (7-17); Calcium 7.8 mg/dL (8.4-10.2); Carbon Dioxide 22 mmol/L (22-32); Chloride 108 mmol/L (98-107); Estimated Glomerular Filt Rate > 60.0 mL/min (>60); Globulin 4.4 g/dL (1.7-4.1); Glucose 121 mg/dL (80-110); HEMOLYSIS < 15 (0-50); Potassium 3.5 mmol/L (3.4-5.1); Sodium 138 mmol/L (137-145); Total Protein 7.1 g/dL (6.3-8.2)
[2018-02-28 05:30] LABS: C-Reactive Protein Quant 2.5 mg/dL (<1.0)
[2018-02-28 06:38] LABS: Anisocytosis 3+; Hypochromasia 2+; Polychromasia 1+
[2018-02-28] MEDS: dilTIAZem 125 MG in DEXTROSE 5 % IN WATER 100 ML 10 ML IV (08:27)
[2018-02-28] MEDS: SODIUM CHLORIDE 0.9% 1,000 ML 25 ML IV (08:28)
[2018-02-28] MEDS: ETHAMBUTOL 400 MG TABLET 800 MG PO (09:17)
[2018-02-28] MEDS: CALCIUM CARB/VIT D3 500/200 TABLET 1 EACH PO (09:17)
[2018-02-28] MEDS: ISONIAZID 300 MG TABLET PO (09:17)
[2018-02-28] MEDS: PYRIDOXINE (VITAMIN B6) 50 MG TABLET PO (09:17)
[2018-02-28] MEDS: METOPROLOL ER 25 MG TABLET PO ×2 (09:17→21:08)
[2018-02-28] MEDS: DOCUSATE 100 MG CAPSULE PO (09:18)
--- NOTE | 2018-02-28 14:34 | PC.NURSE ---
as per Dr. Clayton- pt does NOT need to be isolated due to hx of TB- updated pt much to her relief
[2018-02-28] MEDS: dilTIAZem 30 MG TABLET 60 MG PO (17:27)
--- NOTE | 2018-02-28 17:57 | PC.NURSE ---
Evening Shift Note: Assumed care of pt at 1630. Pt received orders for diltiazem PO. Given 60 mg PO diltiazem at the same time diltiazem gtts finished. Diltiazem gtts off at 17:25. Pt remains in a-fib CVR at 1800. HR 78. Will continue to monitor, notify MD with changes.
--- NOTE | 2018-02-28 18:27 | P.PN_ITS ---
Subjective Date Patient Seen: 02/28/18 Time Patient Seen: 14:24 Interval history: History of present illness Follow-up on patient with rapid AFib and continue treatment of pulmonary tuberculosis that was started at [facility] in October 2017 Note patient had a follow-up chest x-ray and imaging coordinated through the health department 3 weeks ago. Review of system No chest pain or shortness of breath no nausea Exam Vital Signs (past 8 hours): - 02/28/18 12:42 02/28/18 16:00 02/28/18 17:27 Temperature 98.9 F 99.0 F Pulse Rate 89 90 78 Respiratory Rate 31 H 35 H Blood Pressure 100/63 100/54 L 96/58 L Pulse Oximetry 97 93 Oxygen Delivery Method Room Air Oxygen Flow Rate 0 Narrative Exam Narrative: General appearance cachectic female in no apparent distress Psychiatric : Oriented to time place and person mood is pleasant affect is appropriate Skin no rashes or lesions noted dermatitis turgor normal Respiratory fair breath sounds bilaterally Cardiovascular irregular regular rhythm rate of about 80 per minute +3 pulses to extremities GI fairly benign soft nontender positive bowel sounds no distension no guarding no bruits Neurologic no focal neurologic changes cranial nerves 2-12 grossly intact no tremors Objective Labs Result Diagrams: 02/28/18 04:55 02/28/18 04:55 Labs: Laboratory Results - last 24 hr 02/28/18 02/28/18 02/28/18 04:55 04:55 04:55 WBC 3.7 L RBC 3.28 L Hgb 8.1 L Hct 25.9 L MCV 79.1 L MCH 24.6 L MCHC 31.2 RDW 20.2 H Plt Count 299 Neut % (Auto) 67.7 Lymph % (Auto) 17.6 L [place] % (Auto) 13.3 Eos % (Auto) 0.6 L Baso % (Auto) 0.8 Neut # (Auto) 2500 L RBC Morphology See below Polychromasia 1+ H Hypochromasia 2+ H Anisocytosis 3+ H PT INR Sodium 138 Potassium 3.5 Chloride 108 H Carbon Dioxide 22 BUN 5 L Creatinine 0.50 L Estimated GFR > 60.0 BUN/Creatinine Ratio 10.0 Glucose 121 H Calcium 7.8 L Total Bilirubin 1.2 AST 66 H ALT 37 Alkaline Phosphatase 149 H D C-Reactive Protein 2.5 H Total Protein 7.1 Albumin 2.7 L Globulin 4.4 H Albumin/Globulin Ratio 0.6 L 02/28/18 04:55 WBC RBC Hgb Hct MCV MCH MCHC RDW Plt Count Neut % (Auto) Lymph % (Auto) [place] % (Auto) Eos % (Auto) Baso % (Auto) Neut # (Auto) RBC Morphology Polychromasia Hypochromasia Anisocytosis PT 43.2 H D INR 3.9 H Sodium Potassium Chloride Carbon Dioxide BUN Creatinine Estimated GFR BUN/Creatinine Ratio Glucose Calcium Total Bilirubin AST ALT Alkaline Phosphatase C-Reactive Protein Total Protein Albumin Globulin Albumin/Globulin Ratio Assessment & Plan Plan: Assessment/Plan Narrative: Rapid atrial fibrillation Patient started on diltiazem infusion and admitted to ICU and continues on the IV diltiazem today at 10 mg an hour today Telemetry provided Will have the diltiazem IV infusion tapered off start patient on diltiazem 60 mg p.o. q.i.d. and increase the metoprolol Succinate to 25 mg p.o. b.i.d. consult for physical therapy and occupational therapy Supra therapeutic INR of 5.2 Continue holding the Coumadin today's INR is 3.9 and will continue to hold the Coumadin today and repeat INR in a.m. 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 The antibiotics patient was started on admission was discontinued Microcytic anemia Studies suggest anemia of chronic inflammation instead of iron deficiency anemia Need to treat the underlying cause a tomlin for the inflammation which is likely Related to the pulmonary tuberculosis she is presently being treated for Time Spent With Patient Time with patient: 25 - 35 minutes (30 min to visit with patient and coordinate care) Quality VTE Deep Vein Thrombosis/Pulmonary Embolism Present on Admission: No
[2018-02-28] MEDS: SILDENAFIL 20 MG TABLET 10 MG PO (21:07)
[2018-02-28] MEDS: MAGNESIUM HYDROXIDE 30 ML UDC PO (21:11)
[2018-02-28] MEDS: ROSUVASTATIN 10 MG TABLET 20 MG PO (21:12)
[2018-02-28] MEDS: SENNOSIDES 8.6 MG TABLET 17.2 MG PO (21:12)
[2018-03-01] VITALS (8 sets, daily range): BP systolic 87–103; BP diastolic 42–66; PULSE 75–114; RESP 16–28; TEMP 36.8–36.9; O2SAT 92–96; BMI 17.8
[2018-03-01] MEDS: dilTIAZem 30 MG TABLET 60 MG PO ×2 (00:09→09:20)
[2018-03-01] MEDS: METOPROLOL ER 25 MG TABLET PO ×2 (01:35→09:14)
[2018-03-01 05:27] LABS: Add Manual Diff / Slide Review NO; Basophils Percent Auto 1.2 % (0-2); Eosinophils Percent Auto 0.6 % (2-4); Hematocrit 22.7 % (36-46); Hemoglobin 7.2 g/dL (12.0-16.0); Lymphocytes Percent Auto 13.1 % (25-40); Mean Corpuscular HGB Conc 31.7 % (30-36); Mean Corpuscular Hemoglobin 24.7 PG (26-34); Mean Corpuscular Volume 77.8 fL (80-100); Monocytes Percent Auto 11.3 % (3-14); Neutrophils Absolute Auto 2700 /uL (3000-5900); Neutrophils Percent Auto 73.8 % (50-75); Platelet Count 341 X10^3/uL (150-400); Red Blood Cell Count 2.92 X10^6/uL (4.0-5.2); Red Cell Distribution Width 20.6 % (11.6-14.8); White Blood Cell Count 3.6 X10^3/uL (4.5-11.0)
[2018-03-01 05:28] LABS: INR 2.4 (0.9-1.3); Prothrombin Time 26.2 SECONDS (10.1-12.7)
[2018-03-01 05:33] LABS: Alanine Aminotransferase 34 IU/L (9-52); Albumin 2.4 g/dL (3.5-5.0); Albumin Globulin Ratio 0.6 (1.0-2.8); Alkaline Phosphatase 122 U/L (38-126); Aspartate Aminotransferase 53 IU/L (14-36); Bilirubin Total 1.1 mg/dL (0.2-1.3); Blood Urea Nitrogen 5 mg/dL (7-17); Calcium 7.7 mg/dL (8.4-10.2); Carbon Dioxide 23 mmol/L (22-32); Chloride 107 mmol/L (98-107); Estimated Glomerular Filt Rate > 60.0 mL/min (>60); Glucose 118 mg/dL (80-110); HEMOLYSIS < 15 (0-50); Potassium 3.5 mmol/L (3.4-5.1); Sodium 136 mmol/L (137-145); Total Protein 6.4 g/dL (6.3-8.2)
[2018-03-01 06:58] LABS: Anisocytosis 2+; Poikilocytosis 2+
[2018-03-01] MEDS: ETHAMBUTOL 400 MG TABLET 800 MG PO (09:17)
[2018-03-01] MEDS: ISONIAZID 300 MG TABLET PO (09:17)
[2018-03-01] MEDS: PYRIDOXINE (VITAMIN B6) 50 MG TABLET PO (09:18)
[2018-03-01] MEDS: CALCIUM CARB/VIT D3 500/200 TABLET 1 EACH PO (09:18)
[2018-03-01] MEDS: DOCUSATE 100 MG CAPSULE PO (09:18)
--- NOTE | 2018-03-01 12:10 | PT.IIE ---
Addendum entered and electronically signed by Ailin Carty, PT 03/01/18 14:32: I was present for, directly supervised, and guided this treatment session. Marii Carty, DPMeli Original Note: Current Diagnoses Unspecified atrial fibrillation (02/26/18) Medical History (Last Reviewed 02/27/18 @ 13:38 by Leticia Fajardo RN) Anemia (Acute) Atrial fibrillation (Acute) CHF (congestive heart failure) (Acute) Chronic hepatitis B (Acute) Physical Therapy Inpatient Evaluation/Re-Eval M1 PT/OT-IP Prior Functional Status Start: 03/01/18 13:25 Freq: NEEDED Status: Discharge Protocol: Document 03/01/18 12:10 (Rec: 03/01/18 14:05 [email or web address]) Medical Review Prior Functional Status Medical History Reviewed Yes Communication No deficits noted. Mobility and Gait Pt states prior independence with all mobilities using no AD. Social History Household Members none Living Arrangements Apartment/Condo Number of Floors (Floors) One Floor Number of Stairs To Enter/Railing? level entry no rail. Home Environment Standard Height Toilet Tub/Shower Employment Status Retired Additional Social History Comment Has a neice who lives nearby and is willing to have her mother stay with her for a while if needed. Has friends locally, but none with time to provide assist. M2 PT-IP Current Condition Start: 03/01/18 13:25 Freq: NEEDED Status: Discharge Protocol: Document 03/01/18 12:10 (Rec: 03/01/18 14:05 [email or web address]) Physical Therapy Current Condition Current Condition Evaluation Date 03/01/18 Treatment Diagnosis weakness; difficulty with walking Onset Date 02/26/18 Weight Bearing Status Weight Bearing Status Weight Bear as Tolerated M3 PT-IP Subjective Start: 03/01/18 13:25 Freq: NEEDED Status: Discharge Protocol: Document 03/01/18 12:10 (Rec: 03/01/18 14:05 [email or web address]) Subjective Physical Therapy Visit Type Type Initial Evaluation Visit Start Time 12:10 Visit Stop Time 12:38 Total Visit Minutes 28 Number of COLLAR PACKER Visits 0 Physical Therapy Visit Comments Patient Comments Pt is worried about her condition. She is nervous about blacking out. Patient Goals Pt wants to understand her condition. M4 PT-IP Mobility and Gait Start: 03/01/18 13:25 Freq: NEEDED Status: Discharge Protocol: Document 03/01/18 12:10 (Rec: 03/01/18 14:05 [email or web address]) PT-Bed Mobility Assessment Supine to Sit Supine to Sit Independent Scooting Scooting to Edge of Bed Independent PT-Transfer Assessment Sit to and From Stand Sit to and from Stand Independent Use of Upper Extremities Equipment Transfer Assistive Device Gait Belt Front Wheeled Walker Transfers Transfer Destination Chair Comments Mobility Comments supine BP 99/62, Standing 110 /77. pt reports no SBO or dizziness with supine > sit > stand. Gait Assessment Gait Gait Assistance Required: Standby Assistance Distance (Feet) 75 Able to Maintain Weight Bearing Status Yes During Gait Assistive Devices Assistive Device Gait Belt Front Wheeled Walker Orthotic/Prosthetic Devices or Brace: No Gait Deviations General Gait Pattern Within Normal Limits Factors Limiting Gait Function Factors Limiting Gait Function Decreased Activity Tolerance Decreased Strength Poor Balance Poor Safety Awareness Respiratory Distress Comments Gait Comments After marching in place at EOB x1 min, BP = 108/77. pt ambulates 75 ft with fww, SBA, decreased gait speed, and symptoms of SOB. BP post amb = 98/64 PT-Balance Assessment Sitting Balance and Reactions Static Sitting Balance Ability Good Dynamic Sitting Balance Ability Good Standing Balance and Reactions Static Standing Balance Ability Fair Dynamic Standing Balance Ability Fair Device Used fww M5 PT-IP Objective Assessments Start: 03/01/18 13:25 Freq: NEEDED Status: Discharge Protocol: Document 03/01/18 12:10 (Rec: 03/01/18 14:05 [email or web address]) Orientation Orientation/Cognition Level of Alertness Alert Orientation Name Birthday Place Situation Language Function Ability No Deficits Noted Safety Awareness Decreased Safety Awareness Memory Description No Deficits Noted Gross Range of Motion Lower Extremity ROM Assessment Within Functional Limits Strength Comments Strength Comments BLE functional strength 3+/5. Strength not formally assessed but patient states her legs feel weak with ambulation. M6 PT-IP Treatment Start: 03/01/18 13:25 Freq: NEEDED Status: Discharge Protocol: Document 03/01/18 12:10 (Rec: 03/01/18 14:05 [email or web address]) Physical Therapy Treatment Education Education Provided Safety M7 PT-IP Assessment and Plan Start: 03/01/18 13:25 Freq: NEEDED Status: Discharge Protocol: Document 03/01/18 12:10 (Rec: 03/01/18 14:05 [email or web address]) PT Summary Assessment and Plan Potential Rehabilitation Potential Good Status of Condition at Evaluation Evolving Summary Impairments Strength Balance Transfers Gait Activity Tolerance Progress Towards Goals Slow Progress due to Medical Issues Assessment Summary Pt presents with generalized weakness and difficulty with gait. Ambulation 75 ft was poorly tolerated with pt c/o SOB and mod drop in BP. Recommend d/c to neice's home with 24/7 assist with due to pt medical condition and need to monitor. Goals Bed Mobility Goal Independent Transfer Goal Standby Assistance Gait Goal Standby Assistance Gait Distance 100 ft Days to Meet Goals 3 Frequency of Treatment Frequency Of Treatment Once a Day Treatment Plan Physical Therapy Treatment Plan Bed Mobility Training Transfer Training Gait Training Therapeutic Exercise Balance Retraining Post Op Education Discharge Planning Hot or Cold Pack Neuromuscular Re-ed Coordination Retraining Other Recommendations and Next Treatment Check ambulation tolerances Focus without AD. Recommendations To Nursing Amount of Assist Needed Standby Assistance Discharge Recommendations PT Discharge Recommendations Home with 24/7 Assist Home Health
[2018-03-01] MEDS: dilTIAZem CD 180 MG CAP PO (13:26)
--- NOTE | 2018-03-01 14:05 | PC.NURSE ---
discharge to home with alejandra- escorted out of jessica/domon[facility] , reviewed all new rx with staff and silvio
--- NOTE | 2018-03-01 14:23 | CM.DPC ---
DCP: continued: case received today and discussed in Team Rounds. Dr. Clayton stated he anticiptated pt might be ready for d/c home today if all went well. PT and OT were set to see pt today. Updated at 1415 by OT that the therapy team thought pt would benefit from HH PT and OT and that pt was discharging home now with her niece. Went to ICU, room empty. Spoke with TRACIE Au. She noted that pt's niece was here, the doctor had ok'd d/c to her home and with appts set for her cardiac physician. Pt will be staying with here timo Meléndez who is also her POA. Called [employer] who was in process of driving her Aunt home to [place]. She pulled over to side of road and discussion per d/c issues and options proceeded. Medhat notes that the servicenow administrator appt is not until the . She said her aunt was chronically ill and quite weak and that she thought her home would be best as she has a full time paramedic caregiver already taking care of her mother, who lives with her. She had wondered about home health. She was aware that pt had snf benefit and had met the qualifying stay but said the food and general environment would be hard for her Auntie and she thought that the HH option would be best. Choice list: discussed: decision: Nely KELLEY Referral to [facility] by [facility] and paperwork faxed/accepted.TRACIE Clayton was updated and readily agreed with this plan. Face/Face completed. TRACIE Kelly is updated. DC to niece's home [address] [place] [address] H: [phone]. Medhat's cell [phone].
--- NOTE | 2018-03-01 14:36 | PM.DS.1 ---
History of Present Illness Date Patient Seen: 03/01/18 Time Patient Seen: 11:45 Chief complaint: SHORT OF BREATH WHEN SITTING Narrative: Chief complaint Shortness of breath with palpitations. History of present illness Patient is a 62 years of age female with known history of AFib on chronic Coumadin therapy. History of cardioversion last year 2016. No recent fevers nor chills no recent cough ER physician notes on chest x-ray right lower lobe infiltrate consistent with pneumonia. The shortness of breath and the palpitations noted earlier today. No associated chest pain. Discharge Providers Date of admission: 02/26/18 15:50 Primary care physician: Yuan Hutchison MD Consults: 02/26/18 19:30 Consult to Dietitian, Adult Routine Comment: Reason For Exam: poor appetite, BMI 02/28/18 18:31 Consult to Occupational Therapy Evaluate & Treat Comment: Physician Instructions: Evaluate and treat Consult to Physical Therapy Evaluate & Treat Comment: Physician Instructions: Evaluate and Treat Discharge provider: Los Clayton MD Discharge Date: 03/01/18 Summary Discharge Diagnosis: Rapid atrial fibrillation Patient started on diltiazem infusion and admitted to ICU and continues on the IV diltiazem today at 10 mg an hour today Telemetry provided Will have the diltiazem IV infusion tapered off start patient on diltiazem 60 mg p.o. q.i.d. and increase the metoprolol Succinate to 25 mg p.o. b.i.d. consult for physical therapy and occupational therapy Supra therapeutic INR of 5.2 Continue holding the Coumadin today's INR is 3.9 and will continue to hold the Coumadin today and repeat INR in a.m. 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 The antibiotics patient was started on admission was discontinued Microcytic anemia Studies suggest anemia of chronic inflammation instead of iron deficiency anemia Need to treat the underlying cause a tomlin for the inflammation which is likely Related to the pulmonary tuberculosis she is presently being treated for Hospital Course: Patient is a very pleasant 62 years of age female who was admitted to the hospital with shortness of breath and palpitations as her Chief complaint. Patient was found to have rapid AFib and started on diltiazem IV infusion.. There was a bit of a prolongation in care involving the Diltiazem IV But by yesterday in a.m. was able to be tapered off while I started diltiazem 60 mg p.o. q.i.d. along with increasing her metoprolol succinate from 25 mg Daily to 25 mg p.o. b.i.d.. Patient also had a supratherapeutic INR on admission. The Coumadin was held. The INR came back to 2.4 this morning And the warfarin was resumed at 2 mg daily. It appeared patient had an order in outpatient setting to take 1-2 tablets of the 2 mg tablet every day. Prep the patient should be limited to 1 tablet per day. There was also concern patient may have had a right lower lobe pneumonia on admission. This turned out to be a known pulmonary tuberculosis that was treated at [facility] in October and involving a biopsy. Patient was discharged with appropriate treatment under the care of Dr. Roth infectious disease specialist for continued outpatient treatment The pulmonary tuberculosis. Patient's pulmonary status remained stable during hospital course. In a.m. today patient was walked by Physical therapy and deemed safe for discharge to home. The ICU nurse watched patient's telemetry while she ambulated in her heart rate got no higher than 112 and came down to less than 100 quite readily With within minutes. Patient is discharged to home today Status at Discharge Cognitive/behavioral status at discharge: Awake and alert no apparent distress well oriented ADDITIONAL DISCHARGE PLANNING PATIENT TO BE DISCHARGED TO HOME WITH HOME HEALTH AND SERVICES ARRANGED THROUGH CASE MANAGEMENT A [id number] WITH THE PATIENT BY ME THIS MORNING BEFORE DISCHARGE Functional status at discharge: independent ambulation Time Spent with Patient Greater than 30 minutes (40 min) Exam Vital Signs (past 8 hours): - 03/01/18 08:00 03/01/18 12:56 Temperature 98.2 F 98.2 F Pulse Rate 78 90 Respiratory Rate 28 H 18 Blood Pressure 93/66 98/64 Pulse Oximetry 95 96 Oxygen Delivery Method Room Air Oxygen Flow Rate 0 Narrative Exam Narrative: General appearance awake and alert no apparent distress Psychiatric well oriented to time place and person mood is pleasant affect is appropriate Respiratory with fairly good airflow with no significant wheezes or crackles Cardiovascular irregular regular rhythm rate of 80 in a.m. today during my exam pulses +3 to extremities Extremities are warm with good pulses Neurologic no focal neurologic changes cranial nerves 2-12 grossly intact no resting tremor Objective Labs Result Diagrams: 03/01/18 05:05 03/01/18 05:05 Labs: Laboratory Results - last 24 hr 03/01/18 03/01/18 03/01/18 05:05 05:05 05:05 WBC 3.6 L RBC 2.92 L Hgb 7.2 L Hct 22.7 L MCV 77.8 L MCH 24.7 L MCHC 31.7 RDW 20.6 H Plt Count 341 Neut % (Auto) 73.8 Lymph % (Auto) 13.1 L [place] % (Auto) 11.3 Eos % (Auto) 0.6 L Baso % (Auto) 1.2 Neut # (Auto) 2700 L RBC Morphology Not Reportable Poikilocytosis 2+ H Anisocytosis 2+ H PT 26.2 H D INR 2.4 H Sodium 136 L Potassium 3.5 Chloride 107 Carbon Dioxide 23 BUN 5 L Creatinine 0.50 L Estimated GFR > 60.0 BUN/Creatinine Ratio 10.0 Glucose 118 H Calcium 7.7 L Total Bilirubin 1.1 AST 53 H ALT 34 Alkaline Phosphatase 122 Total Protein 6.4 Albumin 2.4 L Globulin 4.0 Albumin/Globulin Ratio 0.6 L Discharge Plan Discharge Plan Patient Disposition: Home Discharge Med Rec/Prescriptions Prescriptions: New diltiazem HCl 180 mg capsule,extended release 24 hr 180 mg PO DAILY Qty: 30 RF: 6 metoprolol succinate 25 mg tablet extended release 24 hr 25 mg PO BID Qty: 60 RF: 6 megestrol [Megace ES] 625 mg/5 mL suspension 625 mg PO QAM Qty: 150 RF: 3 Continue tenofovir disoproxil fumarate [Viread] 300 MG tablet 300 mg PO QDAY Qty: 0 RF: 0 simvastatin 10 MG tablet 10 mg PO HS Qty: 0 RF: 0 warfarin 2 mg tablet 1 - 2 tab PO QPM RF: 0 isoniazid 300 mg Tablet 300 mg PO DAILY RF: 0 ethambutol 400 mg Tablet 800 mg PO DAILY RF: 0 sildenafil (antihypertensive) 20 mg Tablet 10 mg PO BID RF: 0 pyridoxine (vitamin B6) [Vitamin B-6] 50 mg Tablet 1 tab PO DAILY RF: 0 pyrazinamide 500 mg Tablet 2 tab PO DAILY RF: 0 Calcium 500 + D 1 tab PO DAILY RF: 0 Discontinued metoprolol succinate 25 mg tablet extended release 24 hr 1 tab PO DAILY RF: 0 Follow up/Referrals: Kanjo,Zayan, MD [Primary Care Provider] - (please call and schedule a appointment with dr hutchison after discharge [phone]) Provider Discharge Instructions Diet: Diet as Tolerated and Regular Activity: up as tolerated Skin/Wound/Dressing Care Report to your healthcare provider any signs of infection, such as:: chills, fever, night sweats, increased pain and unusual drainage Visit Report/Discharge Packet Visit Report Forms: Stroke Signs & Symptoms Discharge Data Primary Care Provider: Yuan Hutchison Attending Provider: Los Clayton Admit Date/Time: 02/26/18 15:50 Discharges patient from system. Discharge Date/Time: 03/01/18 14:05 Quality VTE Deep Vein Thrombosis/Pulmonary Embolism Present on Admission: No
--- NOTE | 2018-03-01 14:39 | OT.IP.EVAL ---
Current Diagnoses Unspecified atrial fibrillation (02/26/18) Past Medical History (Last Reviewed 02/27/18 @ 13:38 by Leticia Fajardo RN) Anemia (Acute) Atrial fibrillation (Acute) CHF (congestive heart failure) (Acute) Chronic hepatitis B (Acute) Occupational Therapy Inpatient Evaluation/Re-Eval M1 PT/OT-IP Prior Functional Status Start: 03/01/18 14:19 Freq: NEEDED Status: Active Protocol: Document 03/01/18 14:21 [facility] (Rec: 03/01/18 14:39 [facility] [id number]) Medical Review Prior Functional Status Medical History Reviewed Yes Communication No deficits noted. Mobility and Gait Pt states prior independence with all mobilities using no AD. Social History Household Members none Living Arrangements Apartment/Condo Number of Floors (Floors) One Floor Number of Stairs To Enter/Railing? level entry no rail. Home Environment Standard Height Toilet Tub/Shower Employment Status Retired Additional Social History Comment Has a niece who lives nearby and is willing to have her mother stay with her for a while if needed. Has friends locally, but none with time to provide assist. M2 OT-IP Current Condition Start: 03/01/18 14:19 Freq: Status: Active Protocol: Document 03/01/18 14:21 [facility] (Rec: 03/01/18 14:39 [facility] [id number]) Occupational Therapy Current Condition Current Condition Evaluation Date 03/01/18 Treatment Diagnosis A-fib, weakness Diagnosis Onset Date 02/26/18 Weight Bearing Status Weight Bearing Status Weight Bear as Tolerated M3 OT- IP Subjective and Pain Start: 03/01/18 14:19 Freq: Status: Active Protocol: Document 03/01/18 14:21 [facility] (Rec: 03/01/18 14:39 [facility] [id number]) OT- Subjective Occupational Therapy Visit Type Type Initial Evaluation Visit Start Time 13:30 Visit Stop Time 13:55 Total Visit Minutes 25 Occupational Therapy Visit Comments Patient/Caregiver Goals Pt ready to go to niece's home . OT Pain Assessment Pain When Pain Assessed At Rest Pain Present Pain Present Denied Pain M4 OT- IP ADL's Start: 03/01/18 14:19 Freq: Status: Active Protocol: Document 03/01/18 14:21 [facility] (Rec: 03/01/18 14:39 [facility] [id number]) OT ADL-Dressing General Eval Upper Body Dressing Ability Standby Assistance Lower Body Dressing Ability Standby Assistance Contact Guard Assistance Areas Needing Assistance Retrieving/Set-up of Clothing Comments OT Dressing Comments CGA while standing to do LB dressing, able to sit for socks. OT ADL-Toileting Comments OT Toileting Comments Pt's niece states to have shower chair/BSC next to pt's bed versus walking to the bathroom. OT ADL-Bathing Comments OT Bathing Comments Pt's niece has WIS with rails/ shower chiar. M5 OT- IP IADL's Start: 03/01/18 14:19 Freq: Status: Active Protocol: Document 03/01/18 14:21 [facility] (Rec: 03/01/18 14:39 [facility] [id number]) OT-Instrumental Activities of Daily Living Home Safety Awareness Home Safety Comments Pt's niece to assist with all needs and has a hired caregiver to assist as well due to caregiver helping niece 's mom. M6 OT- IP Functional Cognition Start: 03/01/18 14:19 Freq: Status: Active Protocol: Document 03/01/18 14:21 [facility] (Rec: 03/01/18 14:39 [facility] [id number]) Cognitive Factors Limiting Selfcare Function Cognitive Ability Level of Alertness Alert Patient Orientation Name Age Birthday Month Date Year Day of Week Place Situation Attention Span Ability Capable of Focused Attention Capable of Sustained Attention Ability to Follow Commands Able to Follow Multi-Step Commands Memory Description No Deficits Noted Safety Awareness Underestimates Need for Assistance Cognitive Comments Cognitive Assessment Comments VC to use FWW, be sure to get assist, and pt aware to stop and rest when feeling SOB. Pt given energy conservation techniques. OT- Vision and Hearing OT- Hearing Assessment OT- Hearing Assessment WFL M7 OT- IP Mobility and Balance Start: 03/01/18 14:19 Freq: Status: Active Protocol: Document 03/01/18 14:21 [facility] (Rec: 03/01/18 14:39 [facility] [id number]) OT-Transfer Assessment Sit to and From Stand Sit to and from Stand Standby Assistance Contact Guard Assistance Transfers Transfer Ability Standby Assistance Contact Guard Assistance Technique Transfer Destination Bed Transfer Technique Stand Step Pivot Devices Transfer Assistive Devices None Gait Belt Front Wheeled Walker Comments Mobility Comments Attempted to try to walk pt without FWW, as pt did not use a device prior. Pt unsteady and tends to lean to the right . Pt much more steady with FWW . OT- Balance Assessment Sitting Balance and Reactions Static Sitting Balance Ability Normal Dynamic Sitting Balance Ability Normal Standing Balance and Reactions Static Standing Balance Ability Fair Dynamic Standing Balance Ability Poor M8 OT- IP Objective Assessments Start: 03/01/18 14:19 Freq: Status: Active Protocol: Document 03/01/18 14:21 [facility] (Rec: 03/01/18 14:39 [facility] [id number]) OT Gross Range of Motion Upper Extremity Range of Motion Assessment Within Functional Limits M9 OT- IP Assessment and Plan Start: 03/01/18 14:19 Freq: Status: Active Protocol: Document 03/01/18 14:21 [facility] (Rec: 03/01/18 14:39 [facility] [id number]) OT Summary Assessment and Plan Potential Rehabilitation Potential Good Analytic Complexity at Evaluation Low Summary OT Impairments Strength Balance Functional Mobility Bathing Progress Towards Goals Slow Progress due to Activity Tolerance Assessment Summary Pt low complexity and main barrier is activity tolerance and now needing use of FWW to get around. Pt to stay with her niece temporarily until stronger. Pt's niece has good understanding and has most AED for pt. Goals Patient/Caregiver Education Goal Demonstrate Energy Conservation and Pacing Caregiver Independent Assisting Patient Days to Meet Goals 1 Frequency of Treatment Frequency Of Treatment Once a Day Treatment Plan OT Treatment Plan Functional Mobility Patient/Family Education Discharge Planning Discharge Recommendations OT Discharge Recommendations Home with 24/ Assist, home health PT Home Equipment Needs FWW, shower chair, BSC
== END 2018-03-01 14:05 | disposition home health service (06) | DRG 309 ==
LOC: ED 14:43 → ICU 15:50
PROVIDERS: Admitting Provider Internal Medicine; Emergency Provider Emergency Medicine; PCP Internal Medicine; Visit Provider Internal Medicine
DX: I48.91 Unspecified atrial fibrillation (principal); B18.1 Chronic viral hepatitis B without delta-agent; A15.0 Tuberculosis of lung; Z79.01 Long term (current) use of anticoagulants; D50.8 Other iron deficiency anemias
CPT/HCPCS: 36415; 36591; 71045; 71260; 74160; 80053; 82550; 82728; 83540; 83550; 83605; 83690; 84145; 84484; 85025; 85045; 85610; 85730; 86140; 86850; 86900; 86901; 87040; 93005; 93010; 96361; 96365; 96366; 96367; 96375; 97161; 97165; 97530; 99285

== ENCOUNTER 2018-03-30 15:39 | Emergency (ER) | payer MEDICARE, MEDICAID, SELFPAY ==
[2018-02-26 19:28] VITALS: BMI 15.3
[2018-03-30] VITALS (10 sets, daily range): BP systolic 84–98; BP diastolic 60–75; PULSE 100–156; RESP 14–20; TEMP 36.7; O2SAT 97–100; BMI 17.3
--- NOTE | 2018-03-30 15:52 | DI.RAD.S_ITS ---
PROCEDURE: XR CHEST 1V INDICATIONS: chest pain TECHNIQUE: One view of the chest was acquired. COMPARISON: Outside Film, CT, CT CHEST WITH CONTRAST, 10/08/2017, 9:50. [facility], CR, XR CHEST 1 VIEW, 11/26/2017, 9:02. [facility], CT, CT CHEST ABDOMEN W CON, 02/27/2018, 8:34. [facility], CR, XR CHEST 1V, 02/26/2018, 13:05. FINDINGS: Surgical changes and devices: None. Lungs and pleura: There is a small to moderate right pleural effusion, stable. Right basilar consolidation or atelectasis. No pneumothorax. Mediastinum: Mediastinal contours appear normal. Heart size is mildly increased. Bones and chest wall: No suspicious bony lesions. Overlying soft tissues appear unremarkable. IMPRESSION: 1. Small to moderate right pleural effusion appears unchanged from 02/26/2018. 2. Right basilar pneumonia or atelectasis. 3. Mild cardiomegaly. Dictated by: Lise Mcdaniel M.D. on 03/30/2018 at 17:02 Approved by: Lise Mcdaniel M.D. on 03/30/2018 at 17:05
--- NOTE | 2018-03-30 16:10 | PC.NURSE ---
pt states she went to get check up and they told her she was in afib, her heart was going to fast. pt c/o sob for the past few weeks. did not know she was in afib.
[2018-03-30] MEDS: SODIUM CHLORIDE 0.9% 1,000 ML 150 ML IV (16:14)
[2018-03-30 16:17] LABS: Add Manual Diff / Slide Review NO; Basophils Percent Auto 0.8 % (0-2); Eosinophils Percent Auto 0.5 % (2-4); Hematocrit 32.2 % (36-46); Hemoglobin 10.3 g/dL (12.0-16.0); Lymphocytes Percent Auto 11.2 % (25-40); Mean Corpuscular HGB Conc 31.9 % (30-36); Mean Corpuscular Hemoglobin 24.5 PG (26-34); Mean Corpuscular Volume 76.7 fL (80-100); Monocytes Percent Auto 11.4 % (3-14); Neutrophils Absolute Auto 5100 /uL (3000-5900); Neutrophils Percent Auto 76.1 % (50-75); Platelet Count 344 X10^3/uL (150-400); Red Blood Cell Count 4.19 X10^6/uL (4.0-5.2); Red Cell Distribution Width 21.5 % (11.6-14.8); White Blood Cell Count 6.7 X10^3/uL (4.5-11.0)
[2018-03-30 16:24] LABS: INR 2.5 (0.9-1.3); Prothrombin Time 27.5 SECONDS (10.1-12.7)
[2018-03-30 16:27] LABS: PTT Partial Thromboplastin Tim 41 SECONDS (26.4-36.2)
[2018-03-30 16:29] LABS: BUN Creatinine Ratio 31.3 (6-22); Blood Urea Nitrogen 25 mg/dL (7-17); Calcium 8.4 mg/dL (8.4-10.2); Carbon Dioxide 21 mmol/L (22-32); Chloride 103 mmol/L (98-107); Creatine Kinase 49 U/L (30-135); Estimated Glomerular Filt Rate > 60.0 mL/min (>60); Glucose 165 mg/dL (80-110); HEMOLYSIS < 15 (0-50); Sodium 136 mmol/L (137-145)
[2018-03-30 16:41] LABS: Troponin I < 0.012 ng/mL (0.01-0.034)
[2018-03-30 16:44] LABS: Anisocytosis 1+; Hypochromasia 1+; Microcytosis 1+
[2018-03-30] MEDS: dilTIAZem 5 MG/ML SDV 20 MG IV (17:05)
--- NOTE | 2018-03-30 17:26 | PC.NURSE ---
7.5mg diltizem given due to hypotension not the full 20mg given. order changed per dr lamar.
--- NOTE | 2018-03-30 17:37 | ED_ITS ---
HPI - Arrhythmia/Palpitations General Chief Complaint: Arrhythmia/Palpitations Stated Complaint: Afib, RVR Time Seen by Provider: 03/30/18 15:51 Source: EMS Mode of arrival: EMS History of Present Illness HPI narrative: Patient is a 63-year-old female who has a history of AFib sent over by a new PCP with AFib with RVR. Patient does have some shortness of breath but is otherwise asymptomatic. She denies chest pain heart palpitations dizziness lightheadedness. She really has no complaints at this time. Heart rate initially is 145. MD complaint: atrial fibrillation Arrhythmia history: atrial fibrillation and on anti-coagulants Associated symptoms: shortness of breath Related Data Home Medications Medication Instructions Recorded Confirmed simvastatin 10 mg PO BEDTIME #0 07/06/16 03/30/18 tenofovir disoproxil fumarate 300 mg PO QDAY #0 07/06/16 03/30/18 [Viread] Calcium 500 + D 1 tab PO DAILY 02/26/18 02/26/18 ethambutol 800 mg PO DAILY 02/26/18 03/30/18 isoniazid 300 mg PO DAILY 02/26/18 03/30/18 pyrazinamide 2 tab PO DAILY 02/26/18 03/30/18 pyridoxine (vitamin B6) [Vitamin 1 tab PO DAILY 02/26/18 03/30/18 B-6] sildenafil (antihypertensive) 10 mg PO BID 02/26/18 03/30/18 warfarin 1 - 2 tab PO QPM 02/26/18 03/30/18 levofloxacin 500 mg PO DAILY 03/30/18 03/30/18 Previous Rx's Medication Instructions Recorded diltiazem HCl 180 mg PO DAILY #30 cap 03/01/18 megestrol [Megace ES] 625 mg PO QAM #150 ml 03/01/18 metoprolol succinate 25 mg PO BID #60 tab 03/01/18 Allergies Allergy/AdvReac Type Severity Reaction Status Date / Time No Known Drug Allergies Allergy Verified 02/26/18 12:43 Review of Systems Review of Systems GENERAL: Denies chills, fatigue, malaise, fever, sweats, travel HEENT: Denies sinus pain, ear pain, sore throat, difficulty swallowing, neck pain RESPIRATORY:+ short of breath Denies cough, wheezing, hemoptysis, sputum. CARDIOVASCULAR: See HPI GASTROINTESTINAL: Denies nausea, vomiting, abdominal pain, diarrhea, constipation, melena. : Denies dysuria, frequency, incontinence, hematuria, urinary retention, flank pain. MUSCULOSKELETAL: Denies weakness, joint pain, or bony pain SKIN: No rash, no erythema, no pruritus NEUROLOGIC: Denies weakness, dizziness, headache, numbness, change in speech, confusion PSYCHIATRIC: No concerning psychosocial issues. 12 point review of systems is negative except for those stated above and HPI [facility] Medical History Anemia (Acute) Atrial fibrillation (Acute) CHF (congestive heart failure) (Acute) Chronic hepatitis B (Acute) Social History household members: none Smoking Status: Never smoker Exam Initial Vital Signs Initial Vital Signs: Vital Signs Temperature 98.0 F 03/30/18 15:48 Pulse Rate 155 H 03/30/18 15:48 Respiratory Rate 20 03/30/18 15:48 Blood Pressure 88/68 L 03/30/18 15:48 Pulse Oximetry 99 03/30/18 15:48 GENERAL: Thin elderly female no acute distress alert oriented x3 HEENT: Head atraumatic,EOMI, pupils reactive CARDIOVASCULAR: Irregularly irregular tachycardic no murmur RESPIRATORY: Breath sounds equal bilaterally, no wheezes rales or rhonchi. ABDOMEN: Soft, nontender. Normoactive bowel sounds all 4 quadrants. No guarding or rebound. EXTREMITIES: Normal range of motion, no clubbing or edema. Neurovascularly intact NEUROLOGICAL: Alert and oriented x4.Normal gait and speech. Cranial nerves II through XII grossly intact. SKIN: Warm, dry, no laceration, no petechiae, no rashes or lesions. Course Orders Ordered: ED Orders 03/30/18 15:52 XR chest 1V Stat EKG-12 Lead Stat 03/30/18 16:05 Basic Metabolic Panel Stat Complete Blood Count AUTO DIFF Stat Magnesium Stat Partial Thromboplastin Time Stat Prothrombin Time INR Stat Troponin & CK Cardiac Panel Stat Discontinued Medications Diltiazem HCl (Cardizem) 20 mg IV NOW ONE Stop: 03/30/18 16:52 Last Admin: 03/30/18 17:05 Dose: 20 mg Sodium Chloride (Normal Saline 0.9%) 1,000 mls @ 150 mls/hr IV CONT TRUMAN Last Infusion: 03/30/18 18:04 Dose: 0 mls/hr Infusion: 03/30/18 17:08 Dose: 999 mls/hr Admin: 03/30/18 16:14 Dose: 150 mls/hr Metoprolol Succinate (Toprol Xl) 25 mg PO NOW ONE Stop: 03/30/18 17:57 Last Admin: 03/30/18 18:09 Dose: 25 mg Metoprolol Tartrate (Lopressor) 5 mg IV NOW ONE Stop: 03/30/18 18:50 Vital Signs - 8 hr 03/30/18 15:48 03/30/18 17:05 03/30/18 17:10 Temperature 98.0 F Pulse Rate 155 H 156 H 114 H Respiratory Rate 20 14 Blood Pressure 88/68 L 91/63 Blood Pressure [Right Arm] 84/61 L Pulse Oximetry 99 97 03/30/18 17:15 03/30/18 17:24 03/30/18 18:09 Temperature Pulse Rate 111 H 100 H 112 H Respiratory Rate 16 15 Blood Pressure 95/70 Blood Pressure [Right Arm] 87/65 L 95/60 Pulse Oximetry 100 100 03/30/18 18:31 03/30/18 18:40 03/30/18 18:59 Temperature Pulse Rate 115 H 117 H 114 H Respiratory Rate 15 18 Blood Pressure 95/70 Blood Pressure [Right Arm] 95/70 91/67 Pulse Oximetry 99 03/30/18 19:01 Temperature Pulse Rate 129 H Respiratory Rate Blood Pressure Blood Pressure [Right Arm] 98/75 Pulse Oximetry MDM - Arrhythmia/Palpitations Lab Data Attestation: I reviewed the patient's lab results. Result diagrams: 03/30/18 16:05 03/30/18 16:05 Lab Results 03/30/18 03/30/18 03/30/18 Range/Units 16:05 16:05 16:05 WBC 6.7 (4.5-11.0) X10^3/uL RBC 4.19 (4.0-5.2) X10^6/uL Hgb 10.3 L (12.0-16.0) g/dL Hct 32.2 L (36-46) % MCV 76.7 L (80-100) fL MCH 24.5 L (26-34) PG MCHC 31.9 (30-36) % RDW 21.5 H (11.6-14.8) % Plt Count 344 (150-400) X10^3/uL Neut % (Auto) 76.1 H (50-75) % Lymph % (Auto) 11.2 L (25-40) % [place] % (Auto) 11.4 (3-14) % Eos % (Auto) 0.5 L (2-4) % Baso % (Auto) 0.8 (0-2) % Neut # (Auto) 5100 (6028-6207) /uL RBC Morphology See below Hypochromasia 1+ H Anisocytosis 1+ H Microcytosis 1+ H PT 27.5 H (10.1-12.7) SECONDS INR 2.5 H (0.9-1.3) APTT 41 H D (26.4-36.2) SECONDS Sodium 136 L (137-145) mmol/L Potassium 4.0 (3.4-5.1) mmol/L Chloride 103 (98-107) mmol/L Carbon Dioxide 21 L (22-32) mmol/L BUN 25 H (7-17) mg/dL Creatinine 0.80 (0.52-1.04) mg/dL Estimated GFR > 60.0 (>60) mL/min BUN/Creatinine Ratio 31.3 H (6-22) Glucose 165 H (80-110) mg/dL Calcium 8.4 (8.4-10.2) mg/dL Magnesium 2.0 (1.6-2.3) mg/dL Total Creatine Kinase 49 (30-135) U/L CK-MB (CK-2) TNP CK-MB (CK-2) Rel Index TNP Troponin I < 0.012 (0.01-0.034) ng/mL Imaging Data Chest x-ray: Radiologist's impression: [address] [address] XRay Report Signed Patient: Jody Almaguer PMR#: [id number] : 3Acct:[id number] Age/Sex: 63 / FDate of Service: 03/30/18 Loc: ED Accession Number: [id number] Procedure: XR chest 1V Ordering Provider: Mily Page D.O. PROCEDURE: XR CHEST 1V INDICATIONS: chest pain TECHNIQUE: One view of the chest was acquired. COMPARISON: [facility], CT, CT CHEST WITH CONTRAST, 10/08/2017, 9:50. [facility], CR, XR CHEST 1 VIEW, 11/26/2017, 9:02. [facility], CT, CT CHEST ABDOMEN W CON, 02/27/2018, 8:34. [facility], CR, XR CHEST 1V, 02/26/2018, 13:05. FINDINGS: Surgical changes and devices: None. Lungs and pleura: There is a small to moderate right pleural effusion, stable. Right basilar consolidation or atelectasis. No pneumothorax. Mediastinum: Mediastinal contours appear normal. Heart size is mildly increased. Bones and chest wall: No suspicious bony lesions. Overlying soft tissues appear unremarkable. IMPRESSION: 1. Small to moderate right pleural effusion appears unchanged from 02/26/2018. 2. Right basilar pneumonia or atelectasis. 3. Mild cardiomegaly. Dictated by: Lise Mcdaniel M.D. on 03/30/2018 at 17:02 ECG Data Attestation: I personally reviewed and interpreted this ECG as follows: Prior ECG tracings: available for review Interpretation: Atrial fibrillation rate [address] changes similar to previous EKG MDM Narrative Medical decision making narrative: Patient states that she always had lobe blood pressure her knees confirms this. Her heart rate does slow down initially given 7.5 mg of diltiazem. She is given her home dose of metoprolol. However her heart rate started to increase again to the 130s. She is given another 2.5 mg of diltiazem which is now controlled. During this whole time patient remains asymptomatic. They do have a blood pressure cuff and monitor at home. I recommend the monitor her heart rate since she remains asymptomatic. If heart rate is 125-130 than she was should return to the ED. I discussed all findings with the patient, Education has been performed regarding treatment plan, diagnosis, warning signs and symptoms and all concerns have been addressed. Verbally agree with and understood all of the above. Discharge Plan Departure Patient Disposition: Home Clinical Impression: Atrial fibrillation with RVR Discharge Date/Time: 03/30/18 19:46 Interventions: ED Discharge Assessment Last Done: 03/30/18 19:45 Instructions: Atrial Fibrillation Activity Restrictions/Additional Instructions: *You have been diagnosed with atrial fibrillation *What to do: You may or may not require adjustment to your medication, please speak with your primary care provider or caterer helper *Continue to take medications as directed * you were given it you're nightly dose of metoprolol * please that continue to take all medications as previously prescribed *Follow up with your primary care provider in 2-3 days *Return to ER if you should have chest pain, heart palpitations, dizziness, lightheadedness or any new, worsening or concerning symptoms Prescriptions: No Action tenofovir disoproxil fumarate [Viread] 300 MG tablet 300 mg PO QDAY Qty: 0 RF: 0 simvastatin 10 MG tablet 10 mg PO BEDTIME Qty: 0 RF: 0 warfarin 2 mg tablet 1 - 2 tab PO QPM RF: 0 isoniazid 300 mg Tablet 300 mg PO DAILY RF: 0 ethambutol 400 mg Tablet 800 mg PO DAILY RF: 0 sildenafil (antihypertensive) 20 mg Tablet 10 mg PO BID RF: 0 pyridoxine (vitamin B6) [Vitamin B-6] 50 mg Tablet 1 tab PO DAILY RF: 0 pyrazinamide 500 mg Tablet 2 tab PO DAILY RF: 0 Calcium 500 + D 1 tab PO DAILY RF: 0 diltiazem HCl 180 mg capsule,extended release 24 hr 180 mg PO DAILY Qty: 30 RF: 6 metoprolol succinate 25 mg tablet extended release 24 hr 25 mg PO BID Qty: 60 RF: 6 megestrol [Megace ES] 625 mg/5 mL suspension 625 mg PO QAM Qty: 150 RF: 3 levofloxacin 500 mg tablet 500 mg PO DAILY RF: 0 Referrals: Yuan Dunham MD [Primary Care Provider] -
[2018-03-30] MEDS: METOPROLOL ER 25 MG TABLET PO (18:09)
--- NOTE | 2018-03-30 19:00 | PC.NURSE ---
pt neice sitting at bedside pt appears well, eating without difficulty.
== END 2018-03-30 19:46 | disposition home or self-care (01) ==
PROVIDERS: Emergency Provider Emergency Medicine; Family Provider Internal Medicine; PCP Internal Medicine
DX: I48.91 Unspecified atrial fibrillation (principal)
CPT/HCPCS: 36591; 71045; 80048; 82550; 83735; 84484; 85025; 85610; 85730; 93005; 96361; 96374; 99284; 99285

== ENCOUNTER 2018-04-01 15:07 | Emergency (ER) | payer MEDICARE, MEDICAID, SELFPAY ==
[2018-02-26 19:28] VITALS: BMI 15.3
[2018-04-01] VITALS (9 sets, daily range): BP systolic 75–100; BP diastolic 57–83; PULSE 77–136; RESP 16–24; TEMP 36.8; O2SAT 96–100; BMI 17.6
--- NOTE | 2018-04-01 15:13 | DI.RAD.S_ITS ---
PROCEDURE: XR CHEST 1V INDICATIONS: chest pain TECHNIQUE: One view of the chest was acquired. COMPARISON: [facility], CR, XR CHEST 1V, 03/30/2018, 16:10. FINDINGS: Surgical changes and devices: None. Lungs and pleura: Small to moderate right pleural effusion is seen with right basilar infiltrate/atelectasis not significantly changed from previous study. No gross left pleural effusion. No gross pneumothorax. Mild pulmonary vascular congestion is seen. Mediastinum: Mediastinal contours appear normal. Heart size is enlarged. Bones and chest wall: No suspicious bony lesions. Overlying soft tissues appear unremarkable. IMPRESSION: Congestive changes and persistent small to moderate right pleural effusion with right basilar atelectasis/small infiltrates not significantly changed from previous study. No gross pneumothorax. Dictated by: Hernan Almaraz M.D. on 04/01/2018 at 15:54 Approved by: Hernan Almaraz M.D. on 04/01/2018 at 15:55
[2018-04-01] MEDS: SODIUM CHLORIDE 0.9% 1,000 ML 150 ML IV (15:29)
[2018-04-01] MEDS: METOPROLOL TARTRATE 5 MG/5 ML INJ IV (15:29)
--- NOTE | 2018-04-01 15:34 | PC.NURSE ---
Pt states that her bp is normally 80/50 something. Pt is alert/oriented and acting appropriate. Denies any dizziness.
[2018-04-01] MEDS: dilTIAZem 5 MG/ML SDV 10 MG IV (15:45)
--- NOTE | 2018-04-01 15:56 | PC.NURSE ---
pt awake alert/oriented
[2018-04-01 16:08] LABS: Add Manual Diff / Slide Review NO; Basophils Percent Auto 0.6 % (0-2); Eosinophils Percent Auto 0.4 % (2-4); Hematocrit 27.2 % (36-46); Hemoglobin 8.7 g/dL (12.0-16.0); Lymphocytes Percent Auto 11.2 % (25-40); Mean Corpuscular HGB Conc 31.9 % (30-36); Mean Corpuscular Hemoglobin 24.7 PG (26-34); Mean Corpuscular Volume 77.4 fL (80-100); Monocytes Percent Auto 11.2 % (3-14); Neutrophils Absolute Auto 5000 /uL (3000-5900); Neutrophils Percent Auto 76.6 % (50-75); Platelet Count 298 X10^3/uL (150-400); Red Blood Cell Count 3.51 X10^6/uL (4.0-5.2); Red Cell Distribution Width 21.8 % (11.6-14.8); White Blood Cell Count 6.5 X10^3/uL (4.5-11.0)
[2018-04-01 16:16] LABS: INR 3.8 (0.9-1.3); Prothrombin Time 41.9 SECONDS (10.1-12.7)
[2018-04-01 16:18] LABS: PTT Partial Thromboplastin Tim 44 SECONDS (26.4-36.2)
[2018-04-01 16:22] LABS: Alanine Aminotransferase 27 IU/L (9-52); Albumin 3.3 g/dL (3.5-5.0); Albumin Globulin Ratio 0.8 (1.0-2.8); Alkaline Phosphatase 94 U/L (38-126); Aspartate Aminotransferase 42 IU/L (14-36); BUN Creatinine Ratio 33.3 (6-22); Bilirubin Total 0.4 mg/dL (0.2-1.3); Blood Urea Nitrogen 20 mg/dL (7-17); Calcium 7.8 mg/dL (8.4-10.2); Carbon Dioxide 21 mmol/L (22-32); Chloride 106 mmol/L (98-107); Creatine Kinase 42 U/L (30-135); Estimated Glomerular Filt Rate > 60.0 mL/min (>60); Globulin 4.1 g/dL (1.7-4.1); Glucose 100 mg/dL (80-110); HEMOLYSIS < 15 (0-50); Magnesium 1.9 mg/dL (1.6-2.3); Potassium 3.9 mmol/L (3.4-5.1); Sodium 138 mmol/L (137-145); Total Protein 7.4 g/dL (6.3-8.2)
[2018-04-01 16:35] LABS: Anisocytosis 2+; Microcytosis 1+; Poikilocytosis 2+; Polychromasia 1+; Troponin I < 0.012 ng/mL (0.01-0.034)
[2018-04-01 16:37] LABS: Ovalocytes 1+
--- NOTE | 2018-04-01 16:50 | ED_ITS ---
HPI - Arrhythmia/Palpitations General Chief Complaint: Arrhythmia/Palpitations Stated Complaint: AFIB Time Seen by Provider: 04/01/18 15:14 Source: EMS Mode of arrival: EMS Limitations: no limitations History of Present Illness HPI narrative: Patient is a 63-year-old female who presents with heart palpitations. She was seen evaluated here 2 days ago with known AFib. She also has chronic low blood pressure. She says she started feeling palpitations last night and today. She is noted to have a heart rate in the 150s. She has been taking metoprolol. Cardizem is listed on her medication however she says that she is not taking it. He is taking Coumadin. MD complaint: palpitations and irregular heart beat Related Data Home Medications Medication Instructions Recorded Confirmed simvastatin 10 mg PO BEDTIME #0 07/06/16 04/01/18 tenofovir disoproxil fumarate 300 mg PO DAILY #0 07/06/16 04/01/18 [Viread] Calcium 500 + D 1 tab PO DAILY 02/26/18 04/01/18 ethambutol 800 mg PO DAILY 02/26/18 04/01/18 isoniazid 300 mg PO DAILY 02/26/18 04/01/18 pyrazinamide 2 tab PO DAILY 02/26/18 04/01/18 pyridoxine (vitamin B6) [Vitamin 1 tab PO DAILY 02/26/18 04/01/18 B-6] sildenafil (antihypertensive) 10 mg PO BID 02/26/18 04/01/18 warfarin 1 - 2 tab PO QPM 02/26/18 04/01/18 levofloxacin 500 mg PO DAILY 03/30/18 04/01/18 Previous Rx's Medication Instructions Recorded diltiazem HCl 180 mg PO DAILY #30 cap 03/01/18 megestrol [Megace ES] 625 mg PO QAM #150 ml 03/01/18 metoprolol succinate 25 mg PO BID #60 tab 03/01/18 Allergies Allergy/AdvReac Type Severity Reaction Status Date / Time No Known Drug Allergies Allergy Verified 02/26/18 12:43 Review of Systems Review of Systems GENERAL: Denies chills, fatigue, malaise, fever, sweats, travel HEENT: Denies sinus pain, ear pain, sore throat, difficulty swallowing, neck pain RESPIRATORY: Denies dyspnea, cough, wheezing, hemoptysis, sputum. CARDIOVASCULAR: See HPI GASTROINTESTINAL: Denies nausea, vomiting, abdominal pain, diarrhea, constipation, melena. : Denies dysuria, frequency, incontinence, hematuria, urinary retention, flank pain. MUSCULOSKELETAL: Denies weakness, joint pain, or bony pain SKIN: No rash, no erythema, no pruritus NEUROLOGIC: Denies weakness, dizziness, headache, numbness, change in speech, confusion PSYCHIATRIC: No concerning psychosocial issues. 12 point review of systems is negative except for those stated above and HPI [facility] Medical History Anemia (Acute) Atrial fibrillation (Acute) CHF (congestive heart failure) (Acute) Chronic hepatitis B (Acute) Tuberculosis (Acute) Social History household members: none Smoking Status: Never smoker Exam Initial Vital Signs Initial Vital Signs: Vital Signs Temperature 98.2 F 04/01/18 15:09 Pulse Rate 99 H 04/01/18 15:09 Respiratory Rate 20 04/01/18 15:09 Blood Pressure 94/76 04/01/18 15:09 Pulse Oximetry 96 04/01/18 15:09 GENERAL: Small frail elderly female no acute distress alert oriented x3 appears comfortable and asymptomatic. HEENT: Head atraumatic,EOMI, pupils reactive, face symmetric neck is supple no JVD CARDIOVASCULAR: Tachycardic irregularly rate RESPIRATORY: Breath sounds equal bilaterally, no wheezes rales or rhonchi. ABDOMEN: Soft, nontender. Normoactive bowel sounds all 4 quadrants. No guarding or rebound. EXTREMITIES: Normal range of motion, no clubbing or edema. Neurovascularly intact NEUROLOGICAL: Alert and oriented x4.Normal gait and speech. Cranial nerves II through XII grossly intact. SKIN: Warm, dry, no laceration, no petechiae, no rashes or lesions. Course Orders Ordered: ED Orders 04/01/18 15:13 XR chest 1V Stat 04/01/18 16:00 Complete Blood Count AUTO DIFF Stat Comprehensive Metabolic Panel Stat Magnesium Stat Partial Thromboplastin Time Stat Prothrombin Time INR Stat Troponin & CK Cardiac Panel Stat Discontinued Medications Diltiazem HCl (Cardizem) 10 mg IV NOW ONE Stop: 04/01/18 15:32 Last Admin: 04/01/18 15:45 Dose: 10 mg Sodium Chloride (Normal Saline 0.9%) 1,000 mls @ 150 mls/hr IV CONT TRUMAN Last Infusion: 04/01/18 17:56 Dose: 0 mls/hr Admin: 04/01/18 15:29 Dose: 150 mls/hr Metoprolol Succinate (Toprol Xl) 50 mg PO NOW ONE Stop: 04/01/18 15:57 Last Admin: 04/01/18 16:54 Dose: 50 mg Metoprolol Tartrate (Lopressor) 5 mg IV NOW ONE Stop: 04/01/18 15:13 Last Admin: 04/01/18 15:29 Dose: 5 mg Vital Signs - 8 hr 04/01/18 15:09 04/01/18 15:40 04/01/18 15:44 Temperature 98.2 F Pulse Rate 99 H 77 133 H Respiratory Rate 20 22 20 Blood Pressure 94/76 Blood Pressure [Left Arm] 100/69 93/76 Pulse Oximetry 96 100 100 04/01/18 15:45 04/01/18 15:55 04/01/18 16:54 Temperature Pulse Rate 136 H 94 H 90 Respiratory Rate 24 Blood Pressure 98/83 90/57 L Blood Pressure [Left Arm] 75/57 L Pulse Oximetry 99 04/01/18 16:57 04/01/18 17:56 04/01/18 17:57 Temperature Pulse Rate 126 H 109 H 109 H Respiratory Rate 16 17 Blood Pressure 93/69 93/69 Blood Pressure [Left Arm] 90/57 L Pulse Oximetry 100 100 MDM - Arrhythmia/Palpitations Lab Data Attestation: I reviewed the patient's lab results. Result diagrams: 04/01/18 16:00 04/01/18 16:00 Lab Results 04/01/18 04/01/18 04/01/18 Range/Units 16:00 16:00 16:00 WBC 6.5 (4.5-11.0) X10^3/uL RBC 3.51 L (4.0-5.2) X10^6/uL Hgb 8.7 L (12.0-16.0) g/dL Hct 27.2 L (36-46) % MCV 77.4 L (80-100) fL MCH 24.7 L (26-34) PG MCHC 31.9 (30-36) % RDW 21.8 H (11.6-14.8) % Plt Count 298 (150-400) X10^3/uL Neut % (Auto) 76.6 H (50-75) % Lymph % (Auto) 11.2 L (25-40) % Carbon % (Auto) 11.2 (3-14) % Eos % (Auto) 0.4 L (2-4) % Baso % (Auto) 0.6 (0-2) % Neut # (Auto) 5000 (2736-6613) /uL RBC Morphology See below Polychromasia 1+ H Poikilocytosis 2+ H Anisocytosis 2+ H Microcytosis 1+ H Ovalocytes 1+ H PT 41.9 H D (10.1-12.7) SECONDS INR 3.8 H (0.9-1.3) APTT 44 H D (26.4-36.2) SECONDS Sodium 138 (137-145) mmol/L Potassium 3.9 (3.4-5.1) mmol/L Chloride 106 (98-107) mmol/L Carbon Dioxide 21 L (22-32) mmol/L BUN 20 H (7-17) mg/dL Creatinine 0.60 (0.52-1.04) mg/dL Estimated GFR > 60.0 (>60) mL/min BUN/Creatinine Ratio 33.3 H (6-22) Glucose 100 (80-110) mg/dL Calcium 7.8 L (8.4-10.2) mg/dL Magnesium 1.9 (1.6-2.3) mg/dL Total Bilirubin 0.4 (0.2-1.3) mg/dL AST 42 H (14-36) IU/L ALT 27 (9-52) IU/L Alkaline Phosphatase 94 (38-126) U/L Total Creatine Kinase 42 (30-135) U/L CK-MB (CK-2) TNP CK-MB (CK-2) Rel Index TNP Troponin I < 0.012 (0.01-0.034) ng/mL Total Protein 7.4 (6.3-8.2) g/dL Albumin 3.3 L (3.5-5.0) g/dL Globulin 4.1 (1.7-4.1) g/dL Albumin/Globulin Ratio 0.8 L (1.0-2.8) Imaging Data Chest x-ray: Radiologist's impression: [place] [id number] [place] [id number] XRay Report Signed Patient: Jody Almaguer PMR#: [id number] : 3Acct:[id number] Age/Sex: 63 / FDate of Service: 04/01/18 Loc: ED Accession Number: [id number] Procedure: XR chest 1V Ordering Provider: Mily Page D.O. PROCEDURE: XR CHEST 1V INDICATIONS: chest pain TECHNIQUE: One view of the chest was acquired. COMPARISON: [facility], CR, XR CHEST 1V, 03/30/2018, 16:10. FINDINGS: Surgical changes and devices: None. Lungs and pleura: Small to moderate right pleural effusion is seen with right basilar infiltrate/atelectasis not significantly changed from previous study. No gross left pleural effusion. No gross pneumothorax. Mild pulmonary vascular congestion is seen. Mediastinum: Mediastinal contours appear normal. Heart size is enlarged. Bones and chest wall: No suspicious bony lesions. Overlying soft tissues appear unremarkable. IMPRESSION: Congestive changes and persistent small to moderate right pleural effusion with right basilar atelectasis/small infiltrates not significantly changed from previous study. No gross pneumothorax. Dictated by: Hernan Almaraz M.D. on 04/01/2018 at 15:54 ECG Data Attestation: I personally reviewed and interpreted this ECG as follows: Prior ECG tracings: available for review Interpretation: Facial fibrillation rate [address] changes no T-wave inversion MDM Narrative Medical decision making narrative: 3:30 p.m. 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 He will have his office make that referral. She actually has appointment for tomorrow at 2:00 p.m. The patient is apparently also being treated for TB she is being treated for the last 4-5 months. Her x-ray does show right pleural effusion she has had CT in February. she is not hypoxic. No fever or leukocytosis. Patient also is noted to be slightly anemic today she has not had any gross blood per rectum or active vomiting. She has been anemic in the past. This time she does not meet transfusion criteria. She is sleeping and overall feels better. patient's heart rate improved after Lopressor and Cardizem. I gave her her night dose of metoprolol 50 mg Discharge Plan Departure Patient Disposition: Home Clinical Impression: Atrial fibrillation with RVR Discharge Date/Time: 04/01/18 17:58 Interventions: ED Discharge Assessment Last Done: 04/01/18 17:57 Instructions: Atrial Fibrillation Activity Restrictions/Additional Instructions: *You have been diagnosed with atrial fibrillation with RVR *What to do: You have an appointment with Cardiology please talk to urinate *Continue to take medications as directed Metoprolol 50 mg twice a day *Follow up with your primary care provider in 2-3 days, you have appointment tomorrow in telling him with Cardiology- not Dr. Schultz, at 2:00 p.m. *Return to ER if you should have lightheaded chest pain shortness breath or any new, worsening or concerning symptoms Prescriptions: No Action tenofovir disoproxil fumarate [Viread] 300 MG tablet 300 mg PO DAILY Qty: 0 RF: 0 simvastatin 10 MG tablet 10 mg PO BEDTIME Qty: 0 RF: 0 warfarin 2 mg tablet 1 - 2 tab PO QPM RF: 0 isoniazid 300 mg Tablet 300 mg PO DAILY RF: 0 ethambutol 400 mg Tablet 800 mg PO DAILY RF: 0 sildenafil (antihypertensive) 20 mg Tablet 10 mg PO BID RF: 0 pyridoxine (vitamin B6) [Vitamin B-6] 50 mg Tablet 1 tab PO DAILY RF: 0 pyrazinamide 500 mg Tablet 2 tab PO DAILY RF: 0 Calcium 500 + D 1 tab PO DAILY RF: 0 diltiazem HCl 180 mg capsule,extended release 24 hr 180 mg PO DAILY Qty: 30 RF: 6 metoprolol succinate 25 mg tablet extended release 24 hr 25 mg PO BID Qty: 60 RF: 6 megestrol [Megace ES] 625 mg/5 mL suspension 625 mg PO QAM Qty: 150 RF: 3 levofloxacin 500 mg tablet 500 mg PO DAILY RF: 0 Referrals: Yuan Dunham MD [Primary Care Provider] - Jim Schultz MD [Non-Staff] -
[2018-04-01] MEDS: METOPROLOL ER 50 MG TABLET PO (16:54)
--- NOTE | 2018-04-03 18:57 | PC.NURSE ---
f/u phone call, no answer.
== END 2018-04-01 17:58 | disposition home or self-care (01) ==
PROVIDERS: Emergency Provider Emergency Medicine; Family Provider Internal Medicine; PCP Internal Medicine
DX: I48.91 Unspecified atrial fibrillation (principal)
CPT/HCPCS: 36415; 71045; 80053; 82550; 83735; 84484; 85025; 85610; 85730; 93005; 96361; 96374; 96375; 99283; 99285

== ENCOUNTER 2018-10-23 08:15 | Emergency (ER) | payer MEDICARE, MEDICAID, SELFPAY ==
[2018-02-26 19:28] VITALS: BMI 15.3
[2018-10-23 08:28] VITALS: BP 103/87; PULSE 81; RESP 20; TEMP 36.4; O2SAT 99
--- NOTE | 2018-10-23 08:28 | ED.WOUNDLAC ---
HPI - Wound/Laceration General Chief Complaint: Wound/Laceration Stated Complaint: states painful peg tube Time Seen by Provider: 10/23/18 08:17 Source: patient and family Mode of arrival: ambulatory Limitations: no limitations History of Present Illness HPI narrative: 63-year-old female nonsmoker with history AFib and malnutrition presents with a recurrence of purulence drainage from her PEG tube. Patient had the PEG tube placed at the [facility] about 2 months ago to help improve her nutritional status in order to allow her a cardiac surgery for a bad valve. She initially she weighed 93 lb and she is up to about 110 now and generally feels much better. A few weeks ago she had an episode of the development of a granuloma and some purulence discharge suggesting infection which required a round of Keflex and some silver nitrate to the granuloma. Over the past week or so the granuloma has returned and is this time much larger, additionally there is skin breakdown underneath the hub of the PEG as well as purulence drainage. The patient denies any fever or chills nor nausea or vomiting. She denies abdominal pain and states on the whole she feels quite good. Onset (ago): day(s) Location: abdomen Patient tetanus UTD: Yes Associated symptoms: none Treatments prior to arrival: bandage Related Data Home Medications Medication Instructions Recorded Confirmed simvastatin 10 mg PO BEDTIME #0 07/06/16 04/01/18 tenofovir disoproxil fumarate 300 mg PO DAILY #0 07/06/16 04/01/18 [Viread] Calcium 500 + D 1 tab PO DAILY 02/26/18 04/01/18 ethambutol 800 mg PO DAILY 02/26/18 04/01/18 isoniazid 300 mg PO DAILY 02/26/18 04/01/18 pyrazinamide 2 tab PO DAILY 02/26/18 04/01/18 pyridoxine (vitamin B6) [Vitamin 1 tab PO DAILY 02/26/18 04/01/18 B-6] sildenafil (antihypertensive) 10 mg PO BID 02/26/18 04/01/18 warfarin 1 - 2 tab PO QPM 02/26/18 04/01/18 levofloxacin 500 mg PO DAILY 03/30/18 04/01/18 Previous Rx's Medication Instructions Recorded diltiazem HCl 180 mg PO DAILY #30 cap 03/01/18 megestrol [Megace ES] 625 mg PO QAM #150 ml 03/01/18 metoprolol succinate 25 mg PO BID #60 tab 03/01/18 mupirocin 1 applictn TOP TID #15 gram 10/23/18 Allergies Allergy/AdvReac Type Severity Reaction Status Date / Time No Known Drug Allergies Allergy Verified 02/26/18 12:43 Review of Systems Constitutional Denies chills, Denies fever(s), Denies lethargy and Denies weakness Eyes Denies change in vision, Denies eye discharge, Denies irritation and Denies loss of vision ENT Ears, Nose, Mouth, and Throat: Denies change in voice, Denies neck pain and Denies sore throat Cardiovascular Denies chest pain, Denies irregular heart rhythm, Denies lightheadedness, Denies palpitations, Denies dyspnea, Denies dyspnea on exertion and Denies orthopnea Respiratory Denies cough, Denies dyspnea, Denies dyspnea on exertion and Denies wheezing Gastrointestinal Gastrointestinal: Denies abdominal pain, Denies change in bowel habits, Denies diarrhea, Denies nausea and Denies vomiting Genitourinary Denies hematuria, Denies flank pain, Denies urinary incontinence and Denies urinary urgency Musculoskeletal Denies neck pain Integumentary/Breasts Denies pruritus, Reports erythema, Denies rash, Reports skin swelling and Denies wounds Neurologic Denies confusion, Denies loss of vision and Denies weakness Psychiatric Denies anxiety, Denies confusion, Denies depression, Denies homicidal ideation and Denies suicidal ideation Endocrine Denies palpitations Hematologic/Lymphatic Denies easy bruising Allergic/Immunologic Denies wheezing [facility] Medical History Anemia (Acute) Atrial fibrillation (Acute) CHF (congestive heart failure) (Acute) Chronic hepatitis B (Acute) Tuberculosis (Acute) Social History household members: none Smoking Status: Never smoker Social History household members: none Smoking Status: Never smoker Exam Narrative Exam Narrative: GEN: 63F, pleasant, resting comfortably. AOx3 and in mild distress EYES: Pupils are equal, round, and reactive to light and accommodation. Extraoccular muscles are intact bilaterally. There is no subconjunctival hemorrhage or exudate. CHEST: Lungs are clear to auscultation bilaterally and free of wheezes, rales, or rhonchi. Heart rate is regular rhythm, there are no murmurs, clicks, rubs, or gallops. There is no chest wall tenderness. ABD: Abdomen is soft and nontender. PEG stoma notes small granuloma. Mild skin breadown under hub of PEG with small amount of purulent drainage. There is no guarding or rebound. Bowel sounds are normal in all 4 quadrants. There is no mass or organomegaly. EXT: Full painless ROM of all extremities with no loss of sensation or strength. SKIN: Warm, pink, and dry. No erythema or rash Initial Vital Signs Initial Vital Signs: Vital Signs Temperature 97.5 F L 10/23/18 08:28 Pulse Rate 81 10/23/18 08:28 Respiratory Rate 20 10/23/18 08:28 Blood Pressure 103/87 10/23/18 08:28 Pulse Oximetry 99 10/23/18 08:28 Course Orders Ordered: ED Orders 10/23/18 08:35 Wound Culture and Gram Stain Stat Consultations Consultation #1: call to GI at whom recommends close follow up and perhaps topical ABX given how well the patient looks. He wants to see her in clinic next week and states his fellow will reach out on Thursday Vital Signs - 8 hr 10/23/18 08:28 10/23/18 09:34 Temperature 97.5 F L Pulse Rate 81 88 Respiratory Rate 20 18 Blood Pressure 103/87 94/45 L Pulse Oximetry 99 97 Discharge Plan Departure Patient Disposition: Home Clinical Impression: Infection of PEG site Discharge Date/Time: 10/23/18 09:34 Interventions: ED Discharge Assessment Last Done: 10/23/18 09:34 Instructions: DI for Wound Infection Activity Restrictions/Additional Instructions: *You have been diagnosed with [possible PEG infection ] *What to do: *Take medications as directed *Please expect a call from [facility] at on Thursday. If you do not hear from them by the afternoon please call *Return to ER if you should have any new, worsening or concerning symptoms Prescriptions: New mupirocin 2 % ointment 1 applictn TOP TID Qty: 15 RF: 0 No Action tenofovir disoproxil fumarate [Viread] 300 MG tablet 300 mg PO DAILY Qty: 0 RF: 0 simvastatin 10 MG tablet 10 mg PO BEDTIME Qty: 0 RF: 0 warfarin 2 mg tablet 1 - 2 tab PO QPM RF: 0 isoniazid 300 mg Tablet 300 mg PO DAILY RF: 0 ethambutol 400 mg Tablet 800 mg PO DAILY RF: 0 sildenafil (antihypertensive) 20 mg Tablet 10 mg PO BID RF: 0 pyridoxine (vitamin B6) [Vitamin B-6] 50 mg Tablet 1 tab PO DAILY RF: 0 pyrazinamide 500 mg Tablet 2 tab PO DAILY RF: 0 Calcium 500 + D 1 tab PO DAILY RF: 0 diltiazem HCl 180 mg capsule,extended release 24 hr 180 mg PO DAILY Qty: 30 RF: 6 metoprolol succinate 25 mg tablet extended release 24 hr 25 mg PO BID Qty: 60 RF: 6 megestrol [Megace ES] 625 mg/5 mL suspension 625 mg PO QAM Qty: 150 RF: 3 levofloxacin 500 mg tablet 500 mg PO DAILY RF: 0 Referrals: Yuan Dunham MD [Physician] -
[2018-10-23 09:34] VITALS: BP 94/45; PULSE 88; RESP 18; O2SAT 97
== END 2018-10-23 09:34 | disposition home or self-care (01) ==
PROVIDERS: Emergency Provider Emergency Medicine; PCP Internal Medicine
DX: K94.22 Gastrostomy infection (principal)
CPT/HCPCS: 87070; 87077; 87205; 99283